=== PATIENT | male | born 1990 | race Caucasian/White ===

== ENCOUNTER 2016-06-20 00:35 | Emergency (ER) | payer MEDICAID, BC ==
[~2016-06-20] VITALS: Ht 180.3 cm; Wt 136.1 kg
[2016-06-20 00:35] VITALS: BP 132/91; PULSE 117; RESP 20; TEMP 97.5; O2SAT 97
--- NOTE | 2016-06-20 00:35 | NUR ---
Patient to ER bed 2 to gown for evaluation. Side rails up. Report given to HODAN WOODRUFF.
--- NOTE | 2016-06-20 00:45 | NUR ---
Pt states that he has had a sore throat and ear ache since he came back from [place] about a few days ago. No other injuries or complaints mentioned/noted. Will continue to monitor. No distress noted.
--- NOTE | 2016-06-20 00:55 | NUR ---
RENARD Tam at bedside examining patient.
[2016-06-20 01:00] VITALS: BP 132/91; PULSE 100; RESP 20; TEMP 97.5; O2SAT 97
--- NOTE | 2016-06-20 01:00 | NUR ---
Patient given written and verbal discharge instructions and verbalizes understanding. ER MD discussed with patient the results and treatment provided. Patient in stable condition. ID arm band removed. Patient educated on pain management and to follow up with PMD. Pain Scale 3/10. Opportunity for questions provided and answered.
== END 2016-06-20 01:00 | disposition home or self-care (01) ==
LOC: SED 00:35
DX: B34.9 Viral infection, unspecified (principal)
CPT/HCPCS: 99281

== ENCOUNTER 2016-09-14 23:04 | Emergency (ER) | payer BC, MEDICAID ==
[~2016-09-14] VITALS: Ht 177.8 cm; Wt 136.1 kg
[2016-09-14 23:18] VITALS: BP_SYST 135
--- NOTE | 2016-09-14 23:24 | NUR ---
Patient to ER bed 8 to gown for evaluation. Side rails up. Report given to Kori WOODRUFF.
--- NOTE | 2016-09-14 23:25 | NUR ---
Patient AAO x4, sitting in bed, c/o dry cough x 1 day, congestion, patient presents with afebrile temp and skin diaphoretic with pink flushed cheeks. Patient states he has been feeling unwell x 2 days. Upper chest pain noted 5/10, denies shortness of breath, denies dizziness, no acute distress noted. Will continue to monitor.
--- NOTE | 2016-09-14 23:45 | NUR ---
RENARD Peralta at bedside examining patient.
[2016-09-15] MEDS ORDERED: KETOROLAC TROMETHAMINE 60 MG/2 ML VIAL IM ONE
[2016-09-15 00:20] VITALS: BP_SYST 130
--- NOTE | 2016-09-15 00:20 | NUR ---
Patient given written and verbal discharge instructions and verbalizes understanding. ER MD discussed with patient the results and treatment provided. Patient in stable condition. ID arm band removed. No Rx given. Patient educated on pain management and to follow up with PMD. Pain Scale 0/10. Opportunity for questions provided and answered.
== END 2016-09-15 00:20 | disposition home or self-care (01) ==
LOC: SED 23:04
DX: B34.9 Viral infection, unspecified (principal); R03.0 Elevated blood-pressure reading, without diagnosis of hypertension; J45.909 Unspecified asthma, uncomplicated; F20.9 Schizophrenia, unspecified
CPT/HCPCS: 93005; 96372; 99283; J1885

== ENCOUNTER 2017-06-03 23:50 | Emergency (ER) | payer MEDICAID ==
[~2017-06-03] VITALS: Ht 177.8 cm; Wt 136.1 kg
[2017-06-03 23:50] VITALS: BP_SYST 156
[2017-06-04] MEDS ORDERED: KETOROLAC TROMETHAMINE 60 MG/2 ML VIAL IM ONE (00:15)
[2017-06-04 00:36] VITALS: BP_SYST 142
== END 2017-06-04 00:36 | disposition home or self-care (01) ==
LOC: SED 23:50
DX: R10.9 Unspecified abdominal pain (principal); M79.1 Myalgia; F20.9 Schizophrenia, unspecified; J45.909 Unspecified asthma, uncomplicated
CPT/HCPCS: 96372; 99283; J1885

== ENCOUNTER 2020-05-29 07:38 | Inpatient (IN) | payer MEDICAID, SELFPAY ==
[~2020-05-29] VITALS: Ht 180.3 cm; Wt 124.7 kg
--- NOTE | 2020-05-29 07:38 | NUR ---
TRAIGED AND PLACED IN TENT
--- NOTE | 2020-05-29 07:40 | NUR ---
PT ARRIVES FROM HOME WITH INCREASING SOB, COUGH, AND CONGESTION. PT HAS HX OF ASTHMA. TESTED POSTIVE FOR COVID ON 05/24. CURRENT O2 SAT IS 89% ON RA. PLACED ON 2L NC. O2 STAT IS 97%.
[2020-05-29 07:53] VITALS: BP_SYST 96
--- NOTE | 2020-05-29 08:00 | NUR ---
ER examining thein the tent patient.
[2020-05-29 08:39] LABS: BASOPHILS % (AUTO) 0.2 % (0.0-2.0); HEMATOCRIT 43.7 % (36-54); HEMOGLOBIN 14.5 g/dL (14.0-18.0); LYMPHOCYTES # (AUTO) 0.9 K/uL (1.0-5.5); LYMPHOCYTES % (AUTO) 11.9 % (20.5-51.5); MEAN CORPUSCULAR HEMOGLOBIN 31 pg (27-31); MEAN CORPUSCULAR HGB CONC 33 % (32-36); MEAN CORPUSCULAR VOLUME 92 fL (79.0-98.0); MONOCYTES # (AUTO) 0.4 K/uL (0.0-1.0); MONOCYTES % (AUTO) 5.5 % (1.7-9.3); NEUTROPHILS # (AUTO) 6.5 K/uL (1.8-7.7); NEUTROPHILS % (AUTO) 82.4 % (40.0-70.0); PLATELET COUNT (AUTO) 172 K/uL (130-430); RED BLOOD CELL COUNT(AUTO) 4.73 MIL/uL (4.2-6.2); RED CELL DISTRIBUTION WIDTH 13.7 % (9.0-15.0); WHITE BLOOD COUNT (AUTO) 7.9 K/uL (4.8-10.8)
[2020-05-29 08:54] LABS: CALCIUM 8.5 mg/dL (8.4-11.0); CREATININE 1.35 mg/dL (0.55-1.30); POTASSIUM 3.6 mmol/L (3.5-5.1)
[2020-05-29 09:00] LABS: ALBUMIN 3.2 g/dL (3.4-4.8); TOTAL BILIRUBIN 0.6 mg/dL (0.0-1.0)
[2020-05-29] MEDS ORDERED: NACL 0.9% 1,000 ML IV ONE (09:45)
[2020-05-29] MEDS ORDERED: cefTRIAXone 1 GM in D5W 50 ML IV ONE (09:45)
[2020-05-29] MEDS ORDERED: cefTRIAXone 1 GM VIAL ONE (10:32)
--- NOTE | 2020-05-29 10:50 | NUR ---
# 20 gauge angiocath placed to RAC. Use of asceptic technique. Opsite placed over site. Blood return noted. Blood for lab drawn from site. Flushed with 10 cc of normal saline. No evidence of infiltration noted. Patient tolerated well.
--- NOTE | 2020-05-29 11:00 | NUR ---
NS 1 L AND ROCEPHIN CURRENTLY INFUSING PER MD ORDER
[2020-05-29] MEDS ORDERED: KETOROLAC TROMETHAMINE 30 MG VIAL IVP ONE (11:45)
--- NOTE | 2020-05-29 12:00 | NUR ---
went to the tent to reassess the pt. I was informed by security that the pt is his car and w/out the O2. Pt wanted leave AMA. Dr. Vicente spoke with the pt and informed the pt about the possible medical consequences.
[2020-05-29] MEDS ORDERED: KCL 20 mEq in D5NS 1000 mL 1,000 ML IV SCH (12:33)
[2020-05-29 13:08] VITALS: BP_SYST 96
--- NOTE | 2020-05-29 14:13 | NUR ---
Dr dorsey at bedside assessing and reassuring patient
[2020-05-29] MEDS ORDERED: ALBUTEROL MDI INHALATION 8 GM INH INH PRN (15:15)
[2020-05-29] MEDS ORDERED: DEXAMETHASONE SOD PHOSPHATE 10 MG/ML VIAL IVP SCH (15:15)
[2020-05-29] MEDS ORDERED: CHOLECALCIFEROL (VITAMIN D3) 5,000 UNIT TABLET PO SCH (15:15)
--- NOTE | 2020-05-29 15:18 | NUR ---
Patient to ER bed 05 to gown for evaluation. Side rails up.
[2020-05-29 17:00] VITALS: BP_SYST 101
--- NOTE | 2020-05-29 17:20 | NUR ---
Patient does not wish to proceed with medical care recommended by Dr Velázquez . Patient given information related to possible complications, up to and including , which could occur as a result of leaving hospital at this time. Patient verbalizes understanding of risks involved leaving against medical advice. Patient has signed AMA form.
--- NOTE | 2020-05-29 17:25 | NUR ---
pt left AMA. Dr. Velázquez informed the pt regarding the possible consequences, including possible .
[2020-05-29] MEDS ORDERED: AZITHROMYCIN 500 MG in NS 250 ML IV SCH (17:45)
[2020-05-29] MEDS ORDERED: ASCORBIC ACID 500 MG TABLET PO SCH (21:00)
[2020-05-29] MEDS ORDERED: ENOXAPARIN SODIUM 40 MG/0.4 ML SYRINGE SUBCUT SCH (21:00)
[2020-05-29] MEDS ORDERED: PIPERACILLIN/TAZO 4.5GM/DEX-IS 100 ML IV SCH (22:00)
--- NOTE | 2020-05-30 00:44 | NUR ---
CALLED ADMITTING SPOKE WITH NAZANIN SHE SAID CAN NOT DISCHARGE PATIENT PATIENT WAS DC THEN RE ADMITTED REASON WHY APPEARS TWICE IN OUR CENSUS
[2020-05-30] MEDS ORDERED: cefTRIAXone 1 GM in D5W 50 ML IV SCH (09:00)
== END 2020-05-29 17:25 | disposition left against medical advice (07) | DRG 137 ==
LOC: SED 07:38 → SMU 10:23 → UNDODEPER 19:15
PROVIDERS: ADMIT Family Medicine; ATTEND Family Medicine
DX: U07.1 COVID-19 (principal); J12.89 Other viral pneumonia; Z53.29 Procedure and treatment not carried out because of patient's decision for other reasons; J45.909 Unspecified asthma, uncomplicated; Z91.09 Other allergy status, other than to drugs and biological substances; R09.02 Hypoxemia
CPT/HCPCS: 36415; 71045; 80053; 83880; 84484; 85025; 86886; 86900; 86901; 87040-TC; 96365; 96375; 99285; J0456; J0696; J1100; J1650; J1885; J2543; J7050; J7060

== ENCOUNTER 2020-05-29 17:59 | Inpatient (IN) | payer MEDICAID, SELFPAY ==
[~2020-05-29] VITALS: Ht 180.3 cm; Wt 126.6 kg
[2020-05-29 18:14] VITALS: BP_SYST 123
--- NOTE | 2020-05-29 18:39 | NUR ---
Placed in room 08 . Placed on monitor technician, blood pressure machine and pulse oximeter. To gown for exam. Side rails up.
--- NOTE | 2020-05-29 18:55 | NUR ---
RECEIVED AND IN ROOM, PLACED ON MONITOR, ST NO ECTOPY. RESP TACHYPNEIC. SKIN WARM AND DRY. COMMUNICATES CLEARLY IN FULL COMPLETE SENTENCES.
--- NOTE | 2020-05-29 19:20 | NUR ---
NO COMPLAINTS, RESP TACY, SKIN HOT. DENIES CP.
[2020-05-29] MEDS: cefTRIAXone 1 GM IVPB PREMIX 50 ML IV SCH (20:30)
[2020-05-29] MEDS: KCL 20 mEq in D5NS 1000 mL 1,000 ML IV SCH (20:31)
--- NOTE | 2020-05-29 20:37 | NUR ---
CALM, ALERT, RESP TACHY, TACHYCARDIC, NORMOTENSIVE. NO DISTRESS
--- NOTE | 2020-05-29 21:32 | NUR ---
Note tiffanie in EDM - 05/29/20 at 2133 by KELLIE Patient will be admitted to care of [facility]. Admitted to M/S] unit. Will go to room 133. Belongings list completed. Complete and up to date summary report printed. SBAR report to be given at bedside with opportunity for questions.
--- NOTE | 2020-05-29 21:33 | NUR ---
Patient will be admitted to care [facility]. Admitted to M/S unit. Will go to room 133. Belongings list completed. Complete and up to date summary report printed. SBAR report to be given at bedside with opportunity for questions.
[2020-05-29 21:45] VITALS: BP_SYST 122
--- NOTE | 2020-05-29 21:45 | NUR ---
ADMIT NOTE Received pt from ER to the floor with a diagnosis of COVID positive and Pneumonia. Admission process initiated. Patient oriented to pain management, safety and call light-teach back done.
--- NOTE | 2020-05-29 22:50 | NUR ---
PAGED DR. VANCE FOR ORDERS: Informed Dr. Vance that patient is having a fever of 101.5 temporal. He gave orders for Tylenol. Dr. Vance states patient left AMA earlier today and returned an hour later for admission. Dr. Vance gave instructions to continue all orders that were given during previous admission prior to patient leaving AMA.
[2020-05-29] MEDS ORDERED: ACETAMINOPHEN 325 MG TABLET PO PRN (23:15)
[2020-05-29] MEDS ORDERED: ALBUTEROL MDI INHALATION 8 GM INH INH PRN (23:15)
--- NOTE | 2020-05-29 23:21 | NUR ---
PAGED: PAGED DR. BORREGO REGARDING ORDERS. DR. CASH IS W[employer] SPORTS MANAGER SPOKE WITH [employer]
--- NOTE | 2020-05-29 23:55 | NUR ---
PER PATIENT, HE ONLY GIVES AUTHORIZATION TO GIVE HIS INFORMATION. PATIENT'S MOM CALLED AND PT REQUESTED THAT WE DO NOT GIVE HER ANY INFORMATION AND ASKED FOR CALL TO BE TRANSFERRED TO HIS ROOM. CALL WAS TRANSFERRED.
[2020-05-30] VITALS (22 sets, daily range): BP systolic 106–140
[2020-05-30] MEDS: ACETAMINOPHEN 325 MG TABLET PO PRN (00:30)
--- NOTE | 2020-05-30 00:30 | NUR ---
RN ROUNDS / VITALS: Patient is laying in bed and flushed and appears short of breath. Upon taking vitals O2 was 84%. I placed patient on 6L O2 via NC and assisted patient to the prone position and his O2 dropped to 75%. I then turned back on his back and O2 back at 84% and very short of breath. I placed patient on simple mask at 10L with no change in saturation, still at 84%. I then placed patient on non rebreather mask at 15L and O2 is at 94%. Will page Dr. Vance to notify of change of status.
--- NOTE | 2020-05-30 01:06 | NUR ---
PAGED: PAGED DR. CASIANO REGARDING CHANGE OF CONDITION NURSE WAS CONNECTED DIRECTLY TO DR. LONDON WITH [facility]
--- NOTE | 2020-05-30 01:10 | NUR ---
CHANGE IN STATUS: Spoke with Dr. Vance and informed him that patient's O2 dropped to 84% on despite raising O2 to 6L and after placing patient on simple mask at 10L O2 was still at 84%. Furthermore, I placed patient on nonrebreather mask at 15L and O2 now at 94-95%. Per Rajiv he had advised ER nurse to transfer all orders from previous admission prior to patient signing out AMA including Dr. Banks's orders but they were not transferred. He asked me re enter all orders for meds not given as a one time dose and give now. Also page Dr. Stafford, place patient on BIPAP, and transfer patient to ICU and if patient continues to desat call a code for ER to intubate.
--- NOTE | 2020-05-30 01:14 | NUR ---
PAGED I PAGED DR. PURDY I SPOKE WITH BON HICKS
[2020-05-30] MEDS ORDERED: ENOXAPARIN SODIUM 40 MG/0.4 ML SYRINGE SUBCUT ONE (01:30)
[2020-05-30] MEDS ORDERED: ASCORBIC ACID 500 MG TABLET PO ONE (01:30)
[2020-05-30] MEDS ORDERED: CHOLECALCIFEROL (VITAMIN D3) 5,000 UNIT TABLET PO ONE (01:30)
--- NOTE | 2020-05-30 01:45 | NUR ---
SPOKE WITH DR. PURDY: Per Dr. Vance, spoke with Dr. Purdy and informed him of request for consult and gave him pt's current status. Dr. Purdy gave further orders and will enter as given.
--- NOTE | 2020-05-30 02:30 | NUR ---
TRANSFERRED CARE: Report given to Ayaz WOODRUFF at 0230. Patient will be in ICU per Dr. Vance's orders.
[2020-05-30] MEDS ORDERED: ALBUTEROL MDI INHALATION 8 GM INH INH PRN (03:00)
--- NOTE | 2020-05-30 05:10 | NUR ---
DR. POST IS AWARE OF THE CONSULT PER ROGER WOODRUFF
--- NOTE | 2020-05-30 07:00 | NUR ---
i assumed the care of the pt.@0130a.pt.presented change in respiratory status.pt.presented de-saturation via the nasal cannulae. paged apprised of the pt's change in respiratory status. had ordered abg's:call w results. i conveyed the abg's results to . ordered o2 via nrb-mask concurrent w high flow;rate:96h=920%fio-2%. transfer to icu.pt. was transferred to icu overflow;rm;125-a. ordered abg's/cxr in am.pt.presents breathing pattern 02-stabilized.pt's telephoned the unit.i provided the pt update.the pt's was apprised of the pt's transfer to icu unit and the application;administration of o2-therapy via high flow modality. i have collected the mrsa sample sent lab;2/t pt's change/transfer to icu unit.
[2020-05-30] MEDS: ALBUTEROL MDI INHALATION 8 GM INH INH SCH ×2 (07:30→14:05)
--- NOTE | 2020-05-30 07:30 | NUR ---
Opening Note Received plan of care via sbar from endorsing RN.
[2020-05-30] MEDS: CHOLECALCIFEROL (VITAMIN D3) 5,000 UNIT TABLET PO SCH (09:32)
[2020-05-30] MEDS: ASCORBIC ACID 500 MG TABLET PO SCH ×2 (09:32→21:31)
[2020-05-30] MEDS: ENOXAPARIN SODIUM 40 MG/0.4 ML SYRINGE SUBCUT SCH ×2 (09:34→21:32)
[2020-05-30] MEDS: KCL 20 mEq in D5NS 1000 mL 1,000 ML IV SCH (09:51)
--- NOTE | 2020-05-30 09:59 | NUR ---
UNABLE TO CONTACT RANJAN NYE CALLED MT @1634 PATIENT'S PLUSE OX IS NOT SHOWING SPOKE TO POPEYE @10:00 PATIENT HAS BEEN OFF THE O2 MONITOR FOR 15 MINUTES
--- NOTE | 2020-05-30 10:15 | NUR ---
Dr. Ortega at bedside. Provided patient update no new orders.
[2020-05-30 10:33] LABS: C-REACTIVE PROTEIN QUANT 16.2 mg/dL (0-0.5)
--- NOTE | 2020-05-30 12:15 | NUR ---
Received return call from Dr. Stafford. Provided patient udpate including ABGs. Received orders to titrate high flow to 100% as required and to supplement with a non rebreather if needed. In addition, MD lópez with patient on IS.
[2020-05-30] MEDS: DEXAMETHASONE SOD PHOSPHATE 10 MG/ML VIAL IVP SCH (16:28)
--- NOTE | 2020-05-30 20:00 | NUR ---
ASSESSMENT Pt awake alert oriented to, self, time and place. Pt with Oxygen in use. Hi Flow in use. O2 sat @ 90%. IV infusing left wrist 18ga. No redness or swelling noted @ site.
--- NOTE | 2020-05-30 21:00 | NUR ---
DR RAJWINDER Stafford here evaluating the patient.
[2020-05-30] MEDS: cefTRIAXone 1 GM IVPB PREMIX 50 ML IV SCH (21:29)
--- NOTE | 2020-05-30 22:00 | NUR ---
CONVALESCENT PLASMA Pt did not want to sign consent for Convalescent Plasma, wants more information. Written information given to Pt.
[2020-05-30 22:54] LABS: BASOPHILS % (AUTO) 0.1 % (0.0-2.0); HEMATOCRIT 39.8 % (36-54); HEMOGLOBIN 13.4 g/dL (14.0-18.0); LYMPHOCYTES # (AUTO) 0.7 K/uL (1.0-5.5); LYMPHOCYTES % (AUTO) 8.9 % (20.5-51.5); MEAN CORPUSCULAR HEMOGLOBIN 31 pg (27-31); MEAN CORPUSCULAR HGB CONC 34 % (32-36); MEAN CORPUSCULAR VOLUME 92 fL (79.0-98.0); MONOCYTES # (AUTO) 0.4 K/uL (0.0-1.0); MONOCYTES % (AUTO) 4.6 % (1.7-9.3); NEUTROPHILS # (AUTO) 6.7 K/uL (1.8-7.7); NEUTROPHILS % (AUTO) 86.4 % (40.0-70.0); PLATELET COUNT (AUTO) 241 K/uL (130-430); RED BLOOD CELL COUNT(AUTO) 4.32 MIL/uL (4.2-6.2); WHITE BLOOD COUNT (AUTO) 7.8 K/uL (4.8-10.8)
--- NOTE | 2020-05-30 23:00 | NUR ---
REMDESIVIR Medication not available. Unable to reach vocational instructor Pharm[facility].
[2020-05-30 23:11] LABS: CALCIUM 8.4 mg/dL (8.4-11.0); CREATININE 0.95 mg/dL (0.55-1.30)
[2020-05-30 23:18] LABS: ALBUMIN 2.5 g/dL (3.4-4.8); TOTAL BILIRUBIN 0.5 mg/dL (0.0-1.0)
[2020-05-31] VITALS (16 sets, daily range): BP systolic 104–134
[2020-05-31] MEDS: KCL 20 mEq in D5NS 1000 mL 1,000 ML IV SCH ×2 (00:11→11:03)
[2020-05-31] MEDS: ALBUTEROL MDI INHALATION 8 GM INH INH SCH ×4 (05:39→07:40)
[2020-05-31 07:14] LABS: BASOPHILS % (AUTO) 0.1 % (0.0-2.0); HEMATOCRIT 39.5 % (36-54); HEMOGLOBIN 13.3 g/dL (14.0-18.0); LYMPHOCYTES # (AUTO) 0.9 K/uL (1.0-5.5); LYMPHOCYTES % (AUTO) 13.9 % (20.5-51.5); MEAN CORPUSCULAR HEMOGLOBIN 31 pg (27-31); MEAN CORPUSCULAR HGB CONC 34 % (32-36); MEAN CORPUSCULAR VOLUME 93 fL (79.0-98.0); MONOCYTES # (AUTO) 0.6 K/uL (0.0-1.0); MONOCYTES % (AUTO) 8.8 % (1.7-9.3); NEUTROPHILS # (AUTO) 5.2 K/uL (1.8-7.7); NEUTROPHILS % (AUTO) 77.2 % (40.0-70.0); PLATELET COUNT (AUTO) 253 K/uL (130-430); RED BLOOD CELL COUNT(AUTO) 4.25 MIL/uL (4.2-6.2); RED CELL DISTRIBUTION WIDTH 14.1 % (9.0-15.0); WHITE BLOOD COUNT (AUTO) 6.8 K/uL (4.8-10.8)
[2020-05-31 07:59] LABS: ALBUMIN 2.4 g/dL (3.4-4.8); BILIRUBIN,DIRECT 0.3 mg/dL (0.0-0.3); CALCIUM 8.3 mg/dL (8.4-11.0); CREATININE 0.78 mg/dL (0.55-1.30); POTASSIUM 4.1 mmol/L (3.5-5.1); TOTAL BILIRUBIN 0.6 mg/dL (0.0-1.0)
--- NOTE | 2020-05-31 08:00 | NUR ---
patient on 30L Hi Flow (c 80% O2), A/Ox4. SR on monitor. IV on the left wrist, #18, infusing IV fluids. Eating breakfast at this time. Call light in place, bed locked at the lowest position. With BSC.
[2020-05-31] MEDS: ASCORBIC ACID 500 MG TABLET PO SCH ×2 (08:04→20:32)
[2020-05-31] MEDS: CHOLECALCIFEROL (VITAMIN D3) 5,000 UNIT TABLET PO SCH (08:05)
[2020-05-31] MEDS: ENOXAPARIN SODIUM 40 MG/0.4 ML SYRINGE SUBCUT SCH ×2 (08:05→20:33)
--- NOTE | 2020-05-31 09:53 | NUR ---
Nutrition Update Hi Scale 18 noted. Pt admitted for COVID positive/PNA Diet: Regular BMI: 39.2 kg/m2 RD to follow per nutrition care standards.
--- NOTE | 2020-05-31 11:00 | NUR ---
Patient is assisted into a chair. Patient tolerated without distress.
--- NOTE | 2020-05-31 12:30 | NUR ---
Patient eating breakfast at this time. No signs of distress noted.
--- NOTE | 2020-05-31 14:56 | NUR ---
Patient has returned to be with assistance. V/S remained stable.
[2020-05-31] MEDS: DEXAMETHASONE SOD PHOSPHATE 10 MG/ML VIAL IVP SCH (15:13)
[2020-05-31 16:40] LABS: C-REACTIVE PROTEIN QUANT 16.8 mg/dL (0-0.5)
--- NOTE | 2020-05-31 17:00 | NUR ---
Patient is instructed to use incentive spirometer 10x an hour to promote lung expansion and airway clearance.
[2020-05-31 17:06] LABS: C-REACTIVE PROTEIN QUANT 16.8 mg/dL (0-0.5)
--- NOTE | 2020-05-31 18:30 | NUR ---
Patient finished dinner. No signs of distress noted.
[2020-05-31] MEDS: cefTRIAXone 1 GM IVPB PREMIX 50 ML IV SCH (20:32)
--- NOTE | 2020-05-31 22:00 | NUR ---
DR RAJWINDER Stafford here evaluating pt.
[2020-06-01] VITALS (22 sets, daily range): BP systolic 103–142
[2020-06-01] MEDS: KCL 20 mEq in D5NS 1000 mL 1,000 ML IV SCH ×2 (00:50→05:54)
[2020-06-01 07:03] LABS: BASOPHILS # (AUTO) 0.1 K/uL (0.0-0.2); BASOPHILS % (AUTO) 1.2 % (0.0-2.0); EOSINOPHILS # (AUTO) 0.1 K/uL (0.0-0.4); EOSINOPHILS % (AUTO) 0.9 % (0.0-4.0); HEMATOCRIT 38.7 % (36-54); HEMOGLOBIN 13.2 g/dL (14.0-18.0); LYMPHOCYTES # (AUTO) 1.3 K/uL (1.0-5.5); LYMPHOCYTES % (AUTO) 11.9 % (20.5-51.5); MEAN CORPUSCULAR HEMOGLOBIN 32 pg (27-31); MEAN CORPUSCULAR HGB CONC 34 % (32-36); MEAN CORPUSCULAR VOLUME 93 fL (79.0-98.0); MONOCYTES # (AUTO) 0.8 K/uL (0.0-1.0); MONOCYTES % (AUTO) 7.6 % (1.7-9.3); NEUTROPHILS # (AUTO) 8.6 K/uL (1.8-7.7); NEUTROPHILS % (AUTO) 78.4 % (40.0-70.0); PLATELET COUNT (AUTO) 347 K/uL (130-430); RED BLOOD CELL COUNT(AUTO) 4.17 MIL/uL (4.2-6.2); RED CELL DISTRIBUTION WIDTH 13.9 % (9.0-15.0); WHITE BLOOD COUNT (AUTO) 10.9 K/uL (4.8-10.8)
[2020-06-01 07:10] LABS: CALCIUM 8.5 mg/dL (8.4-11.0); CREATININE 0.96 mg/dL (0.55-1.30); POTASSIUM 4.5 mmol/L (3.5-5.1)
[2020-06-01] MEDS: ASCORBIC ACID 500 MG TABLET PO SCH ×2 (08:09→20:10)
[2020-06-01] MEDS: CHOLECALCIFEROL (VITAMIN D3) 5,000 UNIT TABLET PO SCH (08:57)
[2020-06-01] MEDS: ENOXAPARIN SODIUM 40 MG/0.4 ML SYRINGE SUBCUT SCH ×2 (08:58→20:11)
[2020-06-01] MEDS: BUDESONIDE 0.5 MG/2 ML AMPUL.NEB INH SCH ×2 (09:00→20:03)
[2020-06-01] MEDS: ALBUTEROL MDI INHALATION 8 GM INH INH SCH ×3 (09:45→20:02)
--- NOTE | 2020-06-01 10:30 | NUR ---
Notes- on his phone, pt stated that there is water coming out on his oxygen, called respiratory therapist
--- NOTE | 2020-06-01 10:33 | NUR ---
RANJAN PUGH WAS CALLED ON HER CELL RE: O2 DROPPING AT 86%. LEFT A VOICE MESSAGE.
[2020-06-01 10:39] LABS: ALBUMIN 2.4 g/dL (3.4-4.8); BILIRUBIN,DIRECT 0.3 mg/dL (0.0-0.3); C-REACTIVE PROTEIN QUANT 7.3 mg/dL (0-0.5); TOTAL BILIRUBIN 0.5 mg/dL (0.0-1.0)
--- NOTE | 2020-06-01 11:29 | NUR ---
Notes- resting at this time. Enc. patient to use incentive spirometer and to turn to his side and also to prone position. Patient verbalize understanding.
[2020-06-01] MEDS: DEXAMETHASONE SOD PHOSPHATE 10 MG/ML VIAL IVP SCH (15:16)
--- NOTE | 2020-06-01 16:00 | NUR ---
Notes- On his cellphone, denies any pain, afebrile, on high flow 80% tolerating so far.
--- NOTE | 2020-06-01 18:58 | NUR ---
Notes provided dinner, denies any pain or discomfort. IVF infusing well, tolerating current oxygen-on high flow at 80%. uses incentive spirometer.No distress noted.
--- NOTE | 2020-06-01 19:25 | NUR ---
Opening Note Received report from AM nurse using SBAR approach.
[2020-06-01] MEDS: cefTRIAXone 1 GM IVPB PREMIX 50 ML IV SCH (20:10)
--- NOTE | 2020-06-01 22:00 | NUR ---
MD Dr. Ortega came to see patient. No new orders received.
--- NOTE | 2020-06-01 22:30 | NUR ---
MD Dr. Stafford in to see patient. No new orders received.
[2020-06-02] VITALS (21 sets, daily range): BP systolic 107–133
--- NOTE | 2020-06-02 | NUR ---
DOZES ON AND OFF. DESATURATES EASILY, ESPECIALLY WHEN HE TAKES OFF O2. SINUS PHILIP AT TIMES TO 58.
[2020-06-02] MEDS: ALBUTEROL MDI INHALATION 8 GM INH INH SCH ×4 (02:07→21:07)
[2020-06-02] MEDS: KCL 20 mEq in D5NS 1000 mL 1,000 ML IV SCH ×2 (03:31→11:22)
[2020-06-02 06:00] LABS: BASOPHILS % (AUTO) 0.2 % (0.0-2.0); HEMATOCRIT 39.7 % (36-54); HEMOGLOBIN 13.1 g/dL (14.0-18.0); LYMPHOCYTES # (AUTO) 0.9 K/uL (1.0-5.5); LYMPHOCYTES % (AUTO) 8.8 % (20.5-51.5); MEAN CORPUSCULAR HEMOGLOBIN 31 pg (27-31); MEAN CORPUSCULAR HGB CONC 33 % (32-36); MEAN CORPUSCULAR VOLUME 93 fL (79.0-98.0); MONOCYTES # (AUTO) 0.8 K/uL (0.0-1.0); NEUTROPHILS # (AUTO) 8.6 K/uL (1.8-7.7); PLATELET COUNT (AUTO) 344 K/uL (130-430); RED BLOOD CELL COUNT(AUTO) 4.26 MIL/uL (4.2-6.2); RED CELL DISTRIBUTION WIDTH 13.7 % (9.0-15.0); WHITE BLOOD COUNT (AUTO) 10.4 K/uL (4.8-10.8)
[2020-06-02 06:37] LABS: CALCIUM 8.5 mg/dL (8.4-11.0); CREATININE 0.77 mg/dL (0.55-1.30); POTASSIUM 3.9 mmol/L (3.5-5.1)
[2020-06-02] MEDS: ASCORBIC ACID 500 MG TABLET PO SCH ×2 (08:17→22:54)
[2020-06-02] MEDS: ENOXAPARIN SODIUM 40 MG/0.4 ML SYRINGE SUBCUT SCH ×2 (08:18→22:54)
[2020-06-02] MEDS: CHOLECALCIFEROL (VITAMIN D3) 5,000 UNIT TABLET PO SCH (10:12)
--- NOTE | 2020-06-02 10:55 | NUR ---
RT NOTES CRITICAL ABG REPORTED TO RANJAN MILLER. INCREASED FIO2 TO 90% ON HFNC (THIS HFNC DOES NOT GO UP TO 100%) WITH 100% NONREBREATHER MASK ON TOP. RANJAN MILLER MADE AWARE. WILL CONTINUE MONITORING.
--- NOTE | 2020-06-02 11:05 | NUR ---
PER Cesar THOAMS, O2 SAT IS LOW. ON ABG, DR PURDY PAGE TO RELAY ABG RESULTS.
--- NOTE | 2020-06-02 11:30 | NUR ---
PT ASSISTED SITTING ON THE EOB FOR REPOSITIONING.
--- NOTE | 2020-06-02 12:50 | NUR ---
PT'S VALERIE UPDATED WITH PT'S CONDITION.
[2020-06-02] MEDS: DEXAMETHASONE SOD PHOSPHATE 10 MG/ML VIAL IVP SCH (16:04)
--- NOTE | 2020-06-02 17:02 | NUR ---
PT ASSISTED WITH PRONING. PT NOW ON PRONE POSITION IN BED. WILL CONT TO MONITOR.
--- NOTE | 2020-06-02 18:05 | NUR ---
DR BORREGO GAVE OKAY TO GIVE CONVAL. PLASMA TYPE TO PT.
--- NOTE | 2020-06-02 19:39 | NUR ---
CLOSING NOTES PT CONTINUED TO BE ON HIGH FLOW AND NRB MASK , PT STILL DESATS TO 88% WITH OUT THE NRB. PT ENDORSED TO NIGHT RANJAN LUKE. ENDORSED TO GET CONSENT AND TRANSFUSE CONVALESCENT PLASMA.
--- NOTE | 2020-06-02 20:00 | NUR ---
AAOX4 . ON O2 WITH HIGH FLOW AT 30L/MIN(80%), + NON-REBREATHER MASK. SOB UPON EXERTION.
--- NOTE | 2020-06-02 21:00 | NUR ---
DR PURDY HERE, UPDATED ON STATUS. NO NEW ORDERS GIVEN.
--- NOTE | 2020-06-02 21:40 | NUR ---
TALKED TO ON PHONE REGARDING CONVALESCENT PLASMA. QUESTIONS ANSWERED. PT SIGNED CONSENT FORM FOR TRANSFUSION.
--- NOTE | 2020-06-02 21:50 | NUR ---
HUNGRY, ASKED FOR SNACKS. ATE HALF A TURKEY SANDWICH, APPLE SAUCE, APPLE JUICE AND CUSTARD.
--- NOTE | 2020-06-02 22:00 | NUR ---
VOIDED 450CC CLEAR FILIBERTO URINE VIA URINAL.
[2020-06-02] MEDS: cefTRIAXone 1 GM IVPB PREMIX 50 ML IV SCH (22:53)
--- NOTE | 2020-06-02 23:00 | NUR ---
VOIDED 750CC CLEAR FILIBERTO URINE VIA URINAL.
[2020-06-03] VITALS (20 sets, daily range): BP systolic 107–146
--- NOTE | 2020-06-03 01:00 | NUR ---
VOIDED 900CC CLEAR FILIBERTO URINE VIA URINAL.
--- NOTE | 2020-06-03 02:40 | NUR ---
1 UNIT CONVALESCENT PLASMA D# [id number]
[2020-06-03] MEDS: KCL 20 mEq in D5NS 1000 mL 1,000 ML IV SCH ×2 (03:53→23:50)
[2020-06-03] MEDS: ALBUTEROL MDI INHALATION 8 GM INH INH SCH ×2 (04:28→19:50)
--- NOTE | 2020-06-03 05:00 | NUR ---
DOZES ON AND OFF. OCCASIONALLY TAKES OFF O2. DESATURATES. INSTRUCTED TO KEEP O2 ON. CONVALESCENT PLASMA ALL INFUSED. NO ADVERSE EFFECTS NOTED. SINUS PHILIP AT TIMES.
--- NOTE | 2020-06-03 06:51 | NUR ---
NOTIFIED JASON MONTANEZ MT IN ICU PATIENTS LEADS ARE OFF.
--- NOTE | 2020-06-03 07:00 | NUR ---
SLEPT FOR LONG PERIODS OF TIME. NO COMPLAINTS OFFERED AT THIS TIME. REMAINS IN GUARDED CONDITION. LEFT PIV INADVERTENTLY DISLODGED, RELAYED TO DAY SHIFT RANJAN SAUCEDO. VOIDED CLEAR FILIBERTO URINE IN URINAL.
[2020-06-03 07:09] LABS: BASOPHILS % (AUTO) 0.1 % (0.0-2.0); EOSINOPHILS % (AUTO) 0.1 % (0.0-4.0); HEMATOCRIT 39.2 % (36-54); HEMOGLOBIN 13.1 g/dL (14.0-18.0); LYMPHOCYTES # (AUTO) 1.1 K/uL (1.0-5.5); LYMPHOCYTES % (AUTO) 11.8 % (20.5-51.5); MEAN CORPUSCULAR HEMOGLOBIN 31 pg (27-31); MEAN CORPUSCULAR HGB CONC 33 % (32-36); MEAN CORPUSCULAR VOLUME 92 fL (79.0-98.0); MONOCYTES # (AUTO) 0.8 K/uL (0.0-1.0); NEUTROPHILS # (AUTO) 7.2 K/uL (1.8-7.7); PLATELET COUNT (AUTO) 375 K/uL (130-430); RED BLOOD CELL COUNT(AUTO) 4.24 MIL/uL (4.2-6.2); RED CELL DISTRIBUTION WIDTH 13.4 % (9.0-15.0); WHITE BLOOD COUNT (AUTO) 9.1 K/uL (4.8-10.8)
--- NOTE | 2020-06-03 07:30 | NUR ---
Opening note: Report received from night RN. Assuming care now.
--- NOTE | 2020-06-03 07:34 | NUR ---
2ND TIME TO INFORM MT IN ICU INFORMED JASON MONTANEZ MT TO NOTIFY LEWIS ARCHER THAT THE PATIENTS LEADS ARE OFF.
[2020-06-03 07:44] LABS: ALBUMIN 2.5 g/dL (3.4-4.8); BILIRUBIN,DIRECT 0.5 mg/dL (0.0-0.3); CALCIUM 8.5 mg/dL (8.4-11.0); CREATININE 0.8 mg/dL (0.55-1.30); PHOSPHORUS 4.2 mg/dL (2.7-4.5); POTASSIUM 3.7 mmol/L (3.5-5.1)
[2020-06-03] MEDS: CHOLECALCIFEROL (VITAMIN D3) 5,000 UNIT TABLET PO SCH (09:00)
[2020-06-03] MEDS: ASCORBIC ACID 500 MG TABLET PO SCH ×2 (09:03→20:47)
[2020-06-03] MEDS: ENOXAPARIN SODIUM 40 MG/0.4 ML SYRINGE SUBCUT SCH ×2 (09:04→20:47)
--- NOTE | 2020-06-03 11:00 | NUR ---
Midline PIV placed by PICC nurse without incident.
[2020-06-03 13:26] LABS: C-REACTIVE PROTEIN QUANT 6.4 mg/dL (0-0.5)
[2020-06-03] MEDS: PIPERACILLIN/TAZO 4.5GM/DEX-IS 100 ML IV SCH ×2 (14:11→21:50)
--- NOTE | 2020-06-03 14:54 | NUR ---
Continues to be incompliant with NRB mask. Does not wear, however, he has been switching to lying on sides throughout day. Sats in mid 80s to low 90s.
[2020-06-03] MEDS: DEXAMETHASONE SOD PHOSPHATE 10 MG/ML VIAL IVP SCH (16:15)
--- NOTE | 2020-06-03 20:00 | NUR ---
AAOX4. IN NO APPARENT DISTRESS. ON O2 HIGH FLOW AT 30L/MIN + NRBM. DESATURATES WHEN TAKES OFF MASK. INSTRUCTED TO KEEP O2 ON. USING INCENTIVE SPIROMETER. VOIDED 675CC CLEAR FILIBERTO URINE VIA URINAL.
[2020-06-03] MEDS: BUDESONIDE 0.5 MG/2 ML AMPUL.NEB INH SCH (21:00)
[2020-06-04] VITALS (21 sets, daily range): BP systolic 92–143
--- NOTE | 2020-06-04 | NUR ---
DOZES ON AND OFF. HR GOES DOWN TO THE 30'S MOMENTARILY WHEN ASLEEP BUT GENERALLY IN THE HIGH 50'S AND LOW 60'S. VAL MIDLINE DRSG D/I. DR PURDY HERE, UPDATED ON STATUS. NO NEW ORDERS GIVEN. VOIDED 900 CC CLEAR FILIBERTO URINE VIA URINAL.
[2020-06-04] MEDS: ALBUTEROL MDI INHALATION 8 GM INH INH SCH ×4 (01:30→20:09)
--- NOTE | 2020-06-04 04:00 | NUR ---
SLEPT FOR LONG PERIODS OF TIME. HR DIPS IN THE 40'S MOMENTARILY, THEN GOES UP TO THE 70'S. DESATURATES AT TIMES. ABLE TO REPOSITION SELF WELL.
--- NOTE | 2020-06-04 06:00 | NUR ---
SLEPT INTERMITTENTLY. VOIDED 800CC CLEAR YELLOW URINE TO GRAVITY. NO COMPLAINTS OFFERED AT THIS TIME. REMAINS IN GUARDED CONDITION.
[2020-06-04] MEDS: PIPERACILLIN/TAZO 4.5GM/DEX-IS 100 ML IV SCH ×3 (06:01→21:04)
[2020-06-04 06:51] LABS: ALBUMIN 2.5 g/dL (3.4-4.8); BILIRUBIN,DIRECT 0.4 mg/dL (0.0-0.3); CALCIUM 8.8 mg/dL (8.4-11.0); CREATININE 0.72 mg/dL (0.55-1.30); TOTAL BILIRUBIN 0.7 mg/dL (0.0-1.0)
--- NOTE | 2020-06-04 07:30 | NUR ---
oPENING NOTE: Report received from night RN. Assuming care now.
[2020-06-04 07:56] LABS: C-REACTIVE PROTEIN QUANT 4.7 mg/dL (0-0.5)
[2020-06-04] MEDS: ASCORBIC ACID 500 MG TABLET PO SCH ×2 (09:00→21:04)
[2020-06-04] MEDS: CHOLECALCIFEROL (VITAMIN D3) 5,000 UNIT TABLET PO SCH (09:00)
[2020-06-04] MEDS: ENOXAPARIN SODIUM 40 MG/0.4 ML SYRINGE SUBCUT SCH ×2 (09:00→21:05)
--- NOTE | 2020-06-04 13:35 | NUR ---
Spoke w/ patient's mxpd-Pvxlmji-kyloh update on patient's condition. DC plan to home w/ when medically stable.
[2020-06-04] MEDS: DEXAMETHASONE SOD PHOSPHATE 10 MG/ML VIAL IVP SCH (16:12)
--- NOTE | 2020-06-04 18:28 | NUR ---
Patient incompliant with facemask throughout shift. Educated on importance of adherence.
--- NOTE | 2020-06-04 20:00 | NUR ---
AAOX4. IN NO APPARENT DISTRESS. VSS. DENIES PAIN. VOIDED 350CC CLEAR FILIBERTO URINE VIA URINAL.
--- NOTE | 2020-06-04 22:00 | NUR ---
DOZES ON AND OFF. TURNS SELF WELL. NO DISTRESS NOTED.
--- NOTE | 2020-06-04 22:20 | NUR ---
DR PURDY HERE, UPDATED ON STATUS. NO NEW ORDERS GIVEN.
--- NOTE | 2020-06-04 22:47 | NUR ---
CALLED ICU TO LET THEM KNOW THAT THE PATIENT WENT TO [place]OLE
--- NOTE | 2020-06-04 22:48 | NUR ---
ONE OF THE EKG LEADS WAS DETACHED. REATTACHED.
--- NOTE | 2020-06-04 23:00 | NUR ---
VOIDED 400CC CLEAR FILIBERTO URINE VIA URINAL.
--- NOTE | 2020-06-04 23:31 | NUR ---
CALLED ICU AND TOLD THE NURSE THAT THE PATIENT IS OFF THE O2.
--- NOTE | 2020-06-04 23:35 | NUR ---
CHECKED ON PT. POX WAS PROPERLY IN PLACE AT FINGER. PART OF TELEMETRY APPLIANCE CHANGED BY RN.
--- NOTE | 2020-06-04 23:52 | NUR ---
CALLED ICU TO TELL THE NURSE THE PATIENT WAS OFF THE O2
--- NOTE | 2020-06-04 23:54 | NUR ---
APPLIANCE WAS RESET BY REMOVING THEN PLACING BACK BATTERIES. NOW TELEMETRY UNIT IS WORKING PROPERLY.
[2020-06-05] VITALS (24 sets, daily range): BP systolic 93–112
--- NOTE | 2020-06-05 01:00 | NUR ---
PT TALKING TO ON PHONE. CALLED RN ON PHONE AT NURSING STATION , UPDATED ON STATUS. THANKFUL.
--- NOTE | 2020-06-05 02:00 | NUR ---
SLEPT INTERMITTENTLY. VOIDED 450CC CLEAR FILIBERTO URINE VIA URINAL.
--- NOTE | 2020-06-05 04:06 | NUR ---
CALLED ICU TO LET THE NURSE KNOW THAT THE PATIENT HAS A LOW HEART RATE.
--- NOTE | 2020-06-05 04:10 | NUR ---
CALLED AND LET THE NURSE KNOW THAT THE O2 ISN'T ON.
--- NOTE | 2020-06-05 04:15 | NUR ---
CHANGED THE WHOLE TELEMETRY UNIT. POX 90%, HR 59. PT IN NO DISTRESS. VOIDED 350CC CLEAR FILIBERTO URINE TO GRAVITY. Addendum: 06/05/20 at 0447 by Silas Manrique RN CORRECTION: VOIDED 350CC CLEAR FILIBERTO URINE VIA URINAL.
--- NOTE | 2020-06-05 05:23 | NUR ---
CALLED TO LET THE NURSE KNOW THAT THE O2 WAS OFF.
--- NOTE | 2020-06-05 05:30 | NUR ---
CHECKED POX PLACEMENT IN FINGERS, POX IN PLACE. PT SLEEPING, NO DISTRESS NOTED.
[2020-06-05] MEDS: PIPERACILLIN/TAZO 4.5GM/DEX-IS 100 ML IV SCH ×3 (05:34→22:59)
--- NOTE | 2020-06-05 05:56 | NUR ---
CALLED TO LET THE NURSE KNOW THAT THE O2 WAS OFF.
--- NOTE | 2020-06-05 06:00 | NUR ---
SLEPT FOR LONG PERIODS OF TIME. REMAINS IN GUARDED CONDITION.
[2020-06-05 06:38] LABS: BASOPHILS % (AUTO) 0.1 % (0.0-2.0); EOSINOPHILS % (AUTO) 0.1 % (0.0-4.0); HEMATOCRIT 40.8 % (36-54); HEMOGLOBIN 13.6 g/dL (14.0-18.0); LYMPHOCYTES # (AUTO) 1.1 K/uL (1.0-5.5); LYMPHOCYTES % (AUTO) 8.7 % (20.5-51.5); MEAN CORPUSCULAR HEMOGLOBIN 31 pg (27-31); MEAN CORPUSCULAR HGB CONC 33 % (32-36); MEAN CORPUSCULAR VOLUME 93 fL (79.0-98.0); MONOCYTES # (AUTO) 0.7 K/uL (0.0-1.0); MONOCYTES % (AUTO) 6.1 % (1.7-9.3); NEUTROPHILS # (AUTO) 10.4 K/uL (1.8-7.7); PLATELET COUNT (AUTO) 479 K/uL (130-430); RED BLOOD CELL COUNT(AUTO) 4.41 MIL/uL (4.2-6.2); RED CELL DISTRIBUTION WIDTH 13.6 % (9.0-15.0); WHITE BLOOD COUNT (AUTO) 12.2 K/uL (4.8-10.8)
[2020-06-05 06:46] LABS: ALBUMIN 2.6 g/dL (3.4-4.8); BILIRUBIN,DIRECT 0.3 mg/dL (0.0-0.3); CALCIUM 8.9 mg/dL (8.4-11.0); CREATININE 0.83 mg/dL (0.55-1.30); POTASSIUM 3.9 mmol/L (3.5-5.1); TOTAL BILIRUBIN 0.6 mg/dL (0.0-1.0)
--- NOTE | 2020-06-05 07:30 | NUR ---
Opening Note Received plan of care via sbar from endorsing RN.
[2020-06-05] MEDS: ASCORBIC ACID 500 MG TABLET PO SCH ×2 (08:19→20:28)
[2020-06-05] MEDS: CHOLECALCIFEROL (VITAMIN D3) 5,000 UNIT TABLET PO SCH (08:19)
[2020-06-05] MEDS: ENOXAPARIN SODIUM 40 MG/0.4 ML SYRINGE SUBCUT SCH ×2 (08:20→20:29)
[2020-06-05] MEDS: KCL 20 mEq in D5NS 1000 mL 1,000 ML IV SCH ×2 (08:21→22:00)
--- NOTE | 2020-06-05 08:40 | NUR ---
Spoke to Dr. Peña and provided patient update. No new orders.
--- NOTE | 2020-06-05 11:00 | NUR ---
Dr. Vance at bedside. Provided patient update. Received order for Mucinex 600 mg BID PO.
[2020-06-05] MEDS: DEXAMETHASONE SOD PHOSPHATE 10 MG/ML VIAL IVP SCH (15:15)
--- NOTE | 2020-06-05 19:30 | NUR ---
Opening note Received report and assumed care. Patient AAO x4, resting in bed in supine position. No signs of respiratory distress noted as patient continues on high flow canula and tolerating well with O2 sats of 93%. VAL picc in place and patent. will continue to monitor patient as per unit protocol.
[2020-06-05] MEDS: ALBUTEROL MDI INHALATION 8 GM INH INH SCH (20:09)
[2020-06-05] MEDS: guaiFENesin ER 600 MG TAB PO SCH (20:28)
--- NOTE | 2020-06-05 20:30 | NUR ---
Assessment completed. Patient able to reposition self and encouraged to prone during the night. continue to monitor.
--- NOTE | 2020-06-05 21:30 | NUR ---
Dr Stafford at bedside for assessment. No orders received.
[2020-06-06] VITALS (24 sets, daily range): BP systolic 98–141
--- NOTE | 2020-06-06 00:30 | NUR ---
Assessment completed. Patient resting comfortably on his side. No signs of distress noted or reported.
[2020-06-06] MEDS: PIPERACILLIN/TAZO 4.5GM/DEX-IS 100 ML IV SCH ×3 (06:00→23:02)
--- NOTE | 2020-06-06 07:30 | NUR ---
Report received from night nurse. Assuming care now.
[2020-06-06 08:05] LABS: C-REACTIVE PROTEIN QUANT 4.3 mg/dL (0-0.5)
--- NOTE | 2020-06-06 08:47 | NUR ---
ACCESS CONSULTANT LEWIS WAS INFORMED THAT PT HAS NO MINTORING FOR O2 SAT.
[2020-06-06] MEDS: BUDESONIDE 0.5 MG/2 ML AMPUL.NEB INH SCH (09:00)
[2020-06-06] MEDS: ENOXAPARIN SODIUM 40 MG/0.4 ML SYRINGE SUBCUT SCH ×2 (09:17→21:00)
[2020-06-06] MEDS: guaiFENesin ER 600 MG TAB PO SCH ×2 (09:17→21:00)
[2020-06-06] MEDS: ASCORBIC ACID 500 MG TABLET PO SCH ×2 (09:17→21:00)
[2020-06-06 09:39] LABS: ALBUMIN 2.7 g/dL (3.4-4.8); BILIRUBIN,DIRECT 0.3 mg/dL (0.0-0.3); TOTAL BILIRUBIN 0.8 mg/dL (0.0-1.0)
--- NOTE | 2020-06-06 09:47 | NUR ---
A F/U CALL WAS GIVEN TO RANJAN SAUCEDO, STILL NO O2 SAT SHOWING.
[2020-06-06 09:49] LABS: C-REACTIVE PROTEIN QUANT 1.6 mg/dL (0-0.5)
[2020-06-06] MEDS: ALBUTEROL MDI INHALATION 8 GM INH INH SCH ×4 (10:05→20:02)
[2020-06-06] MEDS: CHOLECALCIFEROL (VITAMIN D3) 5,000 UNIT TABLET PO SCH (10:16)
[2020-06-06] MEDS: KCL 20 mEq in D5NS 1000 mL 1,000 ML IV SCH (12:34)
--- NOTE | 2020-06-06 13:17 | NUR ---
Dietitian Recommendations * Recommend continuing regular diet * Double portions of proteins/vegetables LP, RD Please refer to Nutrition Assessment for details. Addendum: 06/06/20 at [address] Amended: Links added.
[2020-06-06] MEDS: DEXAMETHASONE SOD PHOSPHATE 10 MG/ML VIAL IVP SCH (15:15)
--- NOTE | 2020-06-06 15:27 | NUR ---
RANJAN SAUCEDO WAS INFORMED PT IS OFF MONITOR; LEADS OFF.
--- NOTE | 2020-06-06 15:56 | NUR ---
RANJAN SAUCEDO WAS INFORMED THAT O2 SAT IS NOT SHOWING ON THE SCREEN.
[2020-06-06] MEDS ORDERED: *LOVENOX 1MG/KG Q12H/PHARMACY XX ONE (16:45)
[2020-06-07] VITALS (17 sets, daily range): BP systolic 102–139
[2020-06-07] MEDS: PIPERACILLIN/TAZO 4.5GM/DEX-IS 100 ML IV SCH ×3 (06:33→22:21)
--- NOTE | 2020-06-07 08:00 | NUR ---
AM ASSESSMENT DONE. VITAL SIGN STABLE, AFEBRILE. ON HIGH FLOW 85% FIO2, 30 LITERS OXYGEN. SATURATION BETWEEN 88-91%. EDUCATION PROVIDED. UPDATED ABOUT THE POC. VERBALIZED UNDERSTANDING. ENCOURAGE TO CALL WHEN ASSISTANCE NEEDED. CALL LIGHT WITHIN REACH.
[2020-06-07] MEDS: guaiFENesin ER 600 MG TAB PO SCH ×2 (08:26→20:51)
[2020-06-07] MEDS: ASCORBIC ACID 500 MG TABLET PO SCH ×2 (08:27→20:51)
[2020-06-07] MEDS: CHOLECALCIFEROL (VITAMIN D3) 5,000 UNIT TABLET PO SCH (08:27)
[2020-06-07] MEDS: ENOXAPARIN SODIUM 40 MG/0.4 ML SYRINGE SUBCUT SCH ×2 (08:28→20:52)
[2020-06-07] MEDS: BUDESONIDE 0.5 MG/2 ML AMPUL.NEB INH SCH ×2 (09:00→21:00)
[2020-06-07 09:15] LABS: ALBUMIN 2.8 g/dL (3.4-4.8); CALCIUM 9.1 mg/dL (8.4-11.0); CREATININE 0.77 mg/dL (0.55-1.30); POTASSIUM 4.2 mmol/L (3.5-5.1); TOTAL BILIRUBIN 0.7 mg/dL (0.0-1.0)
[2020-06-07] MEDS: ALBUTEROL MDI INHALATION 8 GM INH INH SCH ×3 (10:35→19:00)
[2020-06-07 12:24] LABS: C-REACTIVE PROTEIN QUANT 0.9 mg/dL (0-0.5)
[2020-06-07] MEDS: KCL 20 mEq in D5NS 1000 mL 1,000 ML IV SCH (13:54)
[2020-06-07 14:00] LABS: BASOPHILS # (AUTO) 0.2 K/uL (0.0-0.2); BASOPHILS % (AUTO) 1.2 % (0.0-2.0); EOSINOPHILS % (AUTO) 0.3 % (0.0-4.0); HEMOGLOBIN 14.2 g/dL (14.0-18.0); LYMPHOCYTES # (AUTO) 1.4 K/uL (1.0-5.5); LYMPHOCYTES % (AUTO) 11.2 % (20.5-51.5); MEAN CORPUSCULAR HEMOGLOBIN 31 pg (27-31); MEAN CORPUSCULAR HGB CONC 33 % (32-36); MEAN CORPUSCULAR VOLUME 94 fL (79.0-98.0); MONOCYTES # (AUTO) 0.9 K/uL (0.0-1.0); MONOCYTES % (AUTO) 7.5 % (1.7-9.3); NEUTROPHILS # (AUTO) 10.1 K/uL (1.8-7.7); NEUTROPHILS % (AUTO) 79.8 % (40.0-70.0); PLATELET COUNT (AUTO) 519 K/uL (130-430); RED BLOOD CELL COUNT(AUTO) 4.56 MIL/uL (4.2-6.2); WHITE BLOOD COUNT (AUTO) 12.7 K/uL (4.8-10.8)
--- NOTE | 2020-06-07 14:00 | NUR ---
ASSISTED PATIENT TO USE BEDSIDE COMMODE HAD LARGE BM FORMED.
[2020-06-07] MEDS: DEXAMETHASONE SOD PHOSPHATE 10 MG/ML VIAL IVP SCH (17:00)
--- NOTE | 2020-06-07 17:02 | NUR ---
INFORMED RN DEJA THAT PT IS OFF MONITORING.
--- NOTE | 2020-06-07 18:50 | NUR ---
ALL NEEDS METS, NO S/S OF DISTRESS, VITAL SIGN STABLE, AFEBRILE. NO OTHER CONCERNED NOTED.
--- NOTE | 2020-06-07 20:00 | NUR ---
AAOX4. IN NO APPARENT DISTRESS. ON O2 WITH HIGH FLOW AT 30L/MIN = 85%. HOB UP TO COMFORT. TALKING ON THE PHONE WITH .
--- NOTE | 2020-06-07 20:30 | NUR ---
Assessment completed. patient able to take PO medications. Using urinal. self reposition for comfort.
[2020-06-07] MEDS ORDERED: PIPERACILLIN/TAZOBACTAM 4.5 GM/VIAL (ZOSYN) IV ONE (20:37)
--- NOTE | 2020-06-07 22:00 | NUR ---
VOIDED 475CC CLEAR YELLOW URINE VIA URINAL.
[2020-06-08] VITALS (17 sets, daily range): BP systolic 93–130
--- NOTE | 2020-06-08 | NUR ---
DOZES ON AND OFF. VAL PICC LINE/MIDLINE DRSG D/I. ABLE TO REPOSITION SELF WELL. VOIDED 575CC CLEAR FILIBERTO URINE VIA URINAL.
--- NOTE | 2020-06-08 02:00 | NUR ---
SLEPT INTERMITTENTLY. VOIDED 350CC CLEAR FILIBERTO URINE VIA URINAL.
--- NOTE | 2020-06-08 04:00 | NUR ---
SLEPT FOR LONG PERIODS OF TIME. NO DISTRESS NOTED. TURNS SELF WELL.
[2020-06-08] MEDS: PIPERACILLIN/TAZO 4.5GM/DEX-IS 100 ML IV SCH ×3 (05:49→23:21)
--- NOTE | 2020-06-08 06:00 | NUR ---
SLEPT WELL MOST OF NOC. VOIDED 575CC CLEAR YELLOW URINE VIA URINAL. NO COMPLAINTS OFFERED AT THIS TIME. REMAINS IN GUARDED CONDITION.
--- NOTE | 2020-06-08 08:00 | NUR ---
AM ASSESSMENT. PT ALERT, AFEBRILE, VITAL SIGNS GOOD, NO COMPLAINTS OF PAIN, NEEDS ASSESSED AND ATTENDED, MIDLINE IN RIGHT UPPER ARM, IVF D51/2 NS WITH 20 MEQ KCL AT 75 ML PER HR, WILL CONTINUE TO MONITOR.
[2020-06-08 08:42] LABS: BASOPHILS # (AUTO) 0.1 K/uL (0.0-0.2); BASOPHILS % (AUTO) 0.5 % (0.0-2.0); EOSINOPHILS # (AUTO) 0.1 K/uL (0.0-0.4); EOSINOPHILS % (AUTO) 0.7 % (0.0-4.0); HEMATOCRIT 42.5 % (36-54); LYMPHOCYTES % (AUTO) 14.4 % (20.5-51.5); MEAN CORPUSCULAR HEMOGLOBIN 31 pg (27-31); MEAN CORPUSCULAR HGB CONC 33 % (32-36); MEAN CORPUSCULAR VOLUME 94 fL (79.0-98.0); MONOCYTES # (AUTO) 1.2 K/uL (0.0-1.0); MONOCYTES % (AUTO) 9.1 % (1.7-9.3); NEUTROPHILS # (AUTO) 10.2 K/uL (1.8-7.7); NEUTROPHILS % (AUTO) 75.3 % (40.0-70.0); PLATELET COUNT (AUTO) 531 K/uL (130-430); RED BLOOD CELL COUNT(AUTO) 4.53 MIL/uL (4.2-6.2); RED CELL DISTRIBUTION WIDTH 13.7 % (9.0-15.0); WHITE BLOOD COUNT (AUTO) 13.6 K/uL (4.8-10.8)
[2020-06-08] MEDS: ASCORBIC ACID 500 MG TABLET PO SCH ×2 (08:56→21:00)
[2020-06-08] MEDS: CHOLECALCIFEROL (VITAMIN D3) 5,000 UNIT TABLET PO SCH (08:56)
[2020-06-08] MEDS: guaiFENesin ER 600 MG TAB PO SCH ×2 (08:57→21:00)
[2020-06-08] MEDS: ENOXAPARIN SODIUM 40 MG/0.4 ML SYRINGE SUBCUT SCH ×2 (08:58→21:00)
[2020-06-08 09:28] LABS: ALBUMIN 2.9 g/dL (3.4-4.8); CALCIUM 9.3 mg/dL (8.4-11.0); CREATININE 0.91 mg/dL (0.55-1.30); TOTAL BILIRUBIN 0.9 mg/dL (0.0-1.0)
--- NOTE | 2020-06-08 10:00 | NUR ---
BREATHING. ENCOURAGED TO USE THE SPIROMETER AND PT ABLE TO BRING IT UP TO 2000 ML LEVEL WITHOUT RESPIRATORY DISCOMFORTS.
[2020-06-08] MEDS: KCL 20 mEq in D5NS 1000 mL 1,000 ML IV SCH ×2 (10:45→19:40)
[2020-06-08] MEDS: ALBUTEROL MDI INHALATION 8 GM INH INH SCH ×3 (12:23→20:15)
--- NOTE | 2020-06-08 16:00 | NUR ---
ACTIVITY PT HAD JUST PRONED HIMSELF, NO COMPLAINTS OF BODY DISCOMFORTS.
[2020-06-08] MEDS: DEXAMETHASONE SOD PHOSPHATE 10 MG/ML VIAL IVP SCH (16:05)
--- NOTE | 2020-06-08 16:10 | NUR ---
HYGIENE. BROUGHT IN TOILETRIES AND MILD ASSISTANCE REQUIRED, HAD SPONGE BATH AND ORAL HYGIENE.
--- NOTE | 2020-06-08 18:10 | NUR ---
IV MEDS. REMDESIVIR IVPB ADMINISTERED ORDERED.
--- NOTE | 2020-06-08 19:30 | NUR ---
Opening note Received report and assumed care. Patient AAO x4 resting in bed on semifawlers position. No signs of respiratory distress noted; using IS as per nurses instructions. High flow canula in place 35 L 70% FIO2 with saturations 90-96%. Able to prone self and able to feed self. VAL picc in place patent. will continue to monitor as per unit protocol.
--- NOTE | 2020-06-08 20:30 | NUR ---
Assessment completed. patient able to take PO medications. Using urinal. self reposition for comfort.
[2020-06-08] MEDS: BUDESONIDE 0.5 MG/2 ML AMPUL.NEB INH SCH (21:00)
[2020-06-09] VITALS (17 sets, daily range): BP systolic 86–131
--- NOTE | 2020-06-09 00:30 | NUR ---
Assessment completed. No signs of distress. Tolerating high flow well. will continue to monitor. call light within reach.
[2020-06-09] MEDS: PIPERACILLIN/TAZO 4.5GM/DEX-IS 100 ML IV SCH ×3 (06:41→22:05)
[2020-06-09] MEDS: ALBUTEROL MDI INHALATION 8 GM INH INH SCH ×4 (07:37→18:00)
--- NOTE | 2020-06-09 08:00 | NUR ---
AM ASSESSMENT. PT HEARD TALKING OVER THE PHONE WHEN APPROACHED, INTRODUCED SELF, EXPLAINED PROCEDURE IN A CLEAR MANNER, VITAL SIGNS TAKEN, NO COMPLAINTS OF BODY PAINS, NEEDS ASSESSED AND ATTENDED, CALL LIGHT IN REACH AND ENCOURAGED PT TO PUSH THE CALL BUTTON FOR HELP, WILL CONTINUE TO MONITOR.
[2020-06-09] MEDS: guaiFENesin ER 600 MG TAB PO SCH ×2 (08:46→20:30)
[2020-06-09] MEDS: ASCORBIC ACID 500 MG TABLET PO SCH ×2 (08:46→20:29)
[2020-06-09] MEDS: CHOLECALCIFEROL (VITAMIN D3) 5,000 UNIT TABLET PO SCH (08:46)
[2020-06-09] MEDS: BUDESONIDE 0.5 MG/2 ML AMPUL.NEB INH SCH ×2 (09:00→20:04)
[2020-06-09 09:16] LABS: ALBUMIN 2.9 g/dL (3.4-4.8); BILIRUBIN,DIRECT 0.3 mg/dL (0.0-0.3); TOTAL BILIRUBIN 0.8 mg/dL (0.0-1.0)
--- NOTE | 2020-06-09 09:39 | NUR ---
ABG RESULT CALLED IN TO DR PURDY, NO NEW ORDERS RECEIVED.
[2020-06-09 12:29] LABS: CALCIUM 9.4 mg/dL (8.4-11.0); CREATININE 0.91 mg/dL (0.55-1.30); POTASSIUM 3.8 mmol/L (3.5-5.1)
[2020-06-09] MEDS: ENOXAPARIN SODIUM 40 MG/0.4 ML SYRINGE SUBCUT SCH ×2 (12:34→20:29)
--- NOTE | 2020-06-09 13:00 | NUR ---
DIET FOOD TRAY SERVED FOR LUNCH. PT'S PLAN TO LIE FLAT ON HIS STOMACH FEW HOURS AFTER LUNCH.
[2020-06-09] MEDS: KCL 20 mEq in D5NS 1000 mL 1,000 ML IV SCH (14:01)
--- NOTE | 2020-06-09 16:05 | NUR ---
BREATHING ENCOURAGED PT TO USE INCENTIVE SPIROMETER, ABLE TO BLOW AIR AND REACHING TO 1500 ML LEVEL, WITH MILD ABDOMINAL SORENESS AFTER EACH ATTEMPT HE MADE.
[2020-06-09] MEDS: DEXAMETHASONE SOD PHOSPHATE 10 MG/ML VIAL IVP SCH (16:10)
--- NOTE | 2020-06-09 20:00 | NUR ---
SITTING IN BED FEET DANGLING ON SIDE OF BED. TALKING TO ON PHONE. VOIDED 400CC CLEAR FILIBERTO URINE VIA URINAL. ON HIGH FLOW O2 AT 35L/MIN APPROX 65%. SR.
--- NOTE | 2020-06-09 21:00 | NUR ---
OOB TO BSC, 1 LARGE FORMED BROWN STOOL DEFECATED. VOIDED 200CC CLEAR FILIBERTO URINE VIA URINAL. SELF PRISCILLA-CARE . BHARAT WELL. BACK TO BED WITHOUT INCIDENCE.
[2020-06-10] VITALS (17 sets, daily range): BP systolic 106–134
--- NOTE | 2020-06-10 | NUR ---
DOZES ON AND OFF. DENIES PAIN. VSS.
--- NOTE | 2020-06-10 01:25 | NUR ---
FIO2 DECREASED TO 60% BY RT.
--- NOTE | 2020-06-10 02:00 | NUR ---
VOIDED 750CC CLEAR FILIBERTO URINE VIA URINAL. TURNS SELF WELL.
--- NOTE | 2020-06-10 04:00 | NUR ---
SLEPT INTERMITTENTLY. NO DISTRESS NOTED. NO COMPLAINTS OFFERED AT THIS TIME.
[2020-06-10] MEDS: PIPERACILLIN/TAZO 4.5GM/DEX-IS 100 ML IV SCH ×3 (05:55→21:59)
--- NOTE | 2020-06-10 06:00 | NUR ---
AWAKE, PLAYING WITH PHONE. VOIDED 650CC CLEAR FILIBERTO URINE VIA URINAL. NO COMPLAINTS OFFERED AT THIS TIME. REMAINS IN GUARDED CONDITION.
[2020-06-10] MEDS: ALBUTEROL MDI INHALATION 8 GM INH INH SCH ×4 (07:38→19:40)
[2020-06-10 07:51] LABS: ALBUMIN 2.9 g/dL (3.4-4.8); CALCIUM 8.9 mg/dL (8.4-11.0); CREATININE 0.95 mg/dL (0.55-1.30); POTASSIUM 3.8 mmol/L (3.5-5.1); TOTAL BILIRUBIN 0.7 mg/dL (0.0-1.0)
--- NOTE | 2020-06-10 08:00 | NUR ---
AM ASSESSMENT. PT ALERT, VITAL SIGNS STABLE, ABLE TO VERBALIZE HIS BASIC NEEDS AND ATTENDED, PLAN OF CARE DISCUSSED WITH PT AND HIS VALERIE, ENCOURAGED PT TO USE INCENTIVE SPIROMETER HOURLY.
[2020-06-10] MEDS: ASCORBIC ACID 500 MG TABLET PO SCH ×2 (08:09→21:04)
[2020-06-10] MEDS: guaiFENesin ER 600 MG TAB PO SCH ×2 (08:10→21:05)
[2020-06-10] MEDS: CHOLECALCIFEROL (VITAMIN D3) 5,000 UNIT TABLET PO SCH (08:11)
[2020-06-10] MEDS: ENOXAPARIN SODIUM 40 MG/0.4 ML SYRINGE SUBCUT SCH ×2 (08:12→21:06)
--- NOTE | 2020-06-10 13:10 | NUR ---
RT NOTES DECREASED FIO2 ON HIGH-FLOW NASAL CANNULA TO 50% PER DR. PURDY. RN BREANNA IS AWARE. PT TOLERATING WELL.
--- NOTE | 2020-06-10 14:00 | NUR ---
NURSING. PT SITTING IN BED, HOLDING AND ACCESSING HIS PHONE, O2 SATURATION READING 94%, NO SHORTNESS OF BREATH, WILL CONTINUE TO MONITOR PT.
[2020-06-10] MEDS: KCL 20 mEq in D5NS 1000 mL 1,000 ML IV SCH (15:56)
[2020-06-10] MEDS: DEXAMETHASONE SOD PHOSPHATE 10 MG/ML VIAL IVP SCH (15:58)
--- NOTE | 2020-06-10 20:00 | NUR ---
AAOX4. IN NO APPARENT DISTRESS. VSS. DENIES PAIN. LAYING IN BED IN PRONE POSITION. LAID BACK IN SUPINE POSITION. TALKING TO ON PHONE.
[2020-06-10] MEDS: BUDESONIDE 0.5 MG/2 ML AMPUL.NEB INH SCH (21:00)
--- NOTE | 2020-06-10 22:00 | NUR ---
VOIDED 350CC CLEAR FILIBERTO URINE VIA URINAL.
[2020-06-11] VITALS (20 sets, daily range): BP systolic 0–142
--- NOTE | 2020-06-11 | NUR ---
AWAKE, PLAYING WITH PHONE. VOIDED 425CC CLEAR FILIBERTO URINE VIA URINAL.
[2020-06-11] MEDS: KCL 20 mEq in D5NS 1000 mL 1,000 ML IV SCH ×2 (01:00→15:06)
[2020-06-11] MEDS: ALBUTEROL MDI INHALATION 8 GM INH INH SCH ×4 (01:35→18:10)
--- NOTE | 2020-06-11 04:00 | NUR ---
SLEPT INTERMITTENTLY. VOIDED 725 CC CLEAR FILIBERTO URINE VIA URINAL.
[2020-06-11] MEDS: PIPERACILLIN/TAZO 4.5GM/DEX-IS 100 ML IV SCH ×3 (05:58→22:40)
--- NOTE | 2020-06-11 06:00 | NUR ---
AWAKE. VOIDED 650CC CLEAR FILIBERTO URINE VIA URINAL. NO COMPLAINTS OFFERED AT THIS TIME. REMAINS IN GUARDED CONDITION.
[2020-06-11 06:52] LABS: CALCIUM 8.9 mg/dL (8.4-11.0); CREATININE 0.99 mg/dL (0.55-1.30); POTASSIUM 4.3 mmol/L (3.5-5.1); TOTAL BILIRUBIN 0.6 mg/dL (0.0-1.0)
[2020-06-11] MEDS: ASCORBIC ACID 500 MG TABLET PO SCH ×2 (07:58→22:41)
[2020-06-11] MEDS: CHOLECALCIFEROL (VITAMIN D3) 5,000 UNIT TABLET PO SCH (07:59)
[2020-06-11] MEDS: guaiFENesin ER 600 MG TAB PO SCH ×2 (07:59→22:42)
[2020-06-11] MEDS: ENOXAPARIN SODIUM 40 MG/0.4 ML SYRINGE SUBCUT SCH ×2 (08:00→22:44)
--- NOTE | 2020-06-11 08:00 | NUR ---
A/OX4. BSC PRIVILEGES. SR ON MONITOR. ON HI FLOW O2. IV ON THE RIGHT FA CENTRAL LINE, SITE INTACT AND PATENT. CALL LIGHT IN PLACE, BED LOCKED AT THE LOWEST POSITION, INSTRUCTED PATIENT TO USE CALL LIGHT FOR NEEDS
[2020-06-11] MEDS: BUDESONIDE 0.5 MG/2 ML AMPUL.NEB INH SCH (09:00)
--- NOTE | 2020-06-11 12:00 | NUR ---
PATIENT IS RESTING AT THIS TIME. NO SIGNS OF DISTRESS NOTED.
--- NOTE | 2020-06-11 12:00 | NUR ---
PATIENT IS SEEN EATING LUNCH.
[2020-06-11] MEDS: DEXAMETHASONE SOD PHOSPHATE 10 MG/ML VIAL IVP SCH (15:05)
--- NOTE | 2020-06-11 16:00 | NUR ---
PATIENT IS ASSISTED TO THE BATHROOM FOR BM. TOLERATED WITHOUT DISTRESS
--- NOTE | 2020-06-11 17:34 | NUR ---
Nutrition F/U RD reviewed pt's current EMR record including diet Hx, physician notes, nursing notes, pertinent labs/meds/procedures, care trends, and care activity. Admission Dx: COVID positive/pneumonia PMH: none No SARS-CoV-2 Ag (Rapid)/(PCR) labs available as of 06/11 Current Diet Order/Nutrition Support: Regular x12 days Subjective Info: RD reviewed EMR as bedside interview was deferred d/t isolation precautions and PPE conservation efforts. Pt appears to be tolerating diet well and eating adequately to meet nutritional demands. Current diet remains appropriate. Pertinent Medications: Reviewed Pertinent Labs: Reviewed Skin Integrity Comment: Hi scale: 20; no skin breakdown noted per EMR Current % PO 96% average x6 meals Estimated Energy Expenditure (kcals/day) 6603-5682 kcal/day (30-35 kcal/kg Adj IBW for acute state) Estimated Protein Required (g/day) 117-180 gm/day (1.3-2 gm/kg Adj IBW for acute state) Estimated Fluid Required (l/day) 2.7-3.2 L/day (1 ml/kcal/day for maintenance) Problem/Etiology/Signs/Symptoms Increased nutritional needs related to metabolic demands as evidenced by estimated nutritional requirements for acute state. *met Expected Outcomes/Goals - Monitor appetite and PO intakes w/ goal of pt meeting greater than 80% of estimated nutritional needs, labs trending WNL, normal GI function, and skin integrity/wt maintenance Dietitian Recommendations * Recommend continuing regular diet * Double portions of proteins/vegetables Follow Up Low Risk: F/U in 7 days
--- NOTE | 2020-06-11 17:37 | NUR ---
Dietitian Recommendations * Recommend continuing regular diet * Double portions of proteins/vegetables LP, RD Please refer to Nutrition F/U for details.
--- NOTE | 2020-06-11 18:20 | NUR ---
PATIENT IS HAVING DINNER
--- NOTE | 2020-06-11 20:00 | NUR ---
JAELNT WAS ACCEPTED AND ASSESS DONE , PATIENT ALERT, RESPOND TO ALL COMMANDS, PATIENT IS SELF CARE , USED THE URINAL VOIDING HAS AN COMMODE CHAIR AT BEDSIDE IVF INFUSION , HAS AN MIDLINE PICC PATENT KATELYN PAIN HAS AN HI FLOW NASAL CANNULA , 50%,30 LITER SAT 94-96% AND STABLE
[2020-06-12] VITALS (24 sets, daily range): BP systolic 0–124
--- NOTE | 2020-06-12 | NUR ---
PATIENT IS STABLE MAINTAIN THE HI FLOW OXYGEN , PATIENT IS IN PRONE POSITION , NOTICE FACE IS FLUSH , NO PAIN OR TEMP OCCASIONAL WILL COUGH NON-PRODUCTIVE , CHEST ESSENTIAL CLEAR URINE OUT PUT IS GOOD NO BM AT THIS TIME , RESTING AND ASLEEP. STABLE
--- NOTE | 2020-06-12 | NUR ---
PATIENT SITTING ON SIDE OF BED TALKING ON CELL WITH FAMILY IS THE STABLE KATELYN PAIN WAS ALSO EATING HAD REMOVE THE NASAL CANNULA FOE FEW MIN HAD DESAT TO THE 80 WAS NOTICE ON MONITOR , PATIENT IS TO HAVE AN TREATMENT SOON AND LAID PRONE FOR TWO HOUR, STABLE
--- NOTE | 2020-06-12 05:30 | NUR ---
NO CHANGE WITH THE PATIENT URINE OUT PUT IS OVER 1200 CONSUME SMALL AMOUNT OF PUDDING WILL REMOVE THE NASAL CANNULA WHILE EATING . STAT FOOD GET INTO THE NASAL CANNULA , STABLE WILL COCNTINUED WITH PLAN OF CARE, STABLE
[2020-06-12] MEDS: PIPERACILLIN/TAZO 4.5GM/DEX-IS 100 ML IV SCH ×3 (06:49→21:49)
[2020-06-12] MEDS: KCL 20 mEq in D5NS 1000 mL 1,000 ML IV SCH ×2 (07:00→16:01)
--- NOTE | 2020-06-12 07:30 | NUR ---
Opening Notes Pt received from night nurse Shanika using SBAR.
[2020-06-12] MEDS: guaiFENesin ER 600 MG TAB PO SCH ×2 (08:38→21:46)
[2020-06-12] MEDS: CHOLECALCIFEROL (VITAMIN D3) 5,000 UNIT TABLET PO SCH (08:38)
[2020-06-12] MEDS: ASCORBIC ACID 500 MG TABLET PO SCH ×2 (08:38→21:46)
[2020-06-12] MEDS: ENOXAPARIN SODIUM 40 MG/0.4 ML SYRINGE SUBCUT SCH ×2 (08:39→21:48)
--- NOTE | 2020-06-12 08:45 | NUR ---
Education Pt provided education on the benefit of self proning, the use and benefit of the incentive spirometor and turn cough / deep breath. Pt was able to return demonstration and confirmed education.
--- NOTE | 2020-06-12 15:10 | NUR ---
Supine Pt is observed to be laying supine during afternoon nap.
[2020-06-12] MEDS: DEXAMETHASONE SOD PHOSPHATE 10 MG/ML VIAL IVP SCH (15:53)
--- NOTE | 2020-06-12 19:19 | NUR ---
Closing Notes Pt endorsed to night RN using SBAR
--- NOTE | 2020-06-12 19:25 | NUR ---
Opening Note Received report from AM nurse using SBAR approach.
[2020-06-12] MEDS: ALBUTEROL MDI INHALATION 8 GM INH INH SCH ×2 (19:55)
--- NOTE | 2020-06-12 23:45 | NUR ---
MD Dr. Stafford called and asked update on patient. Provided update. New orders received.
[2020-06-13] VITALS (22 sets, daily range): BP systolic 110–174
[2020-06-13] MEDS: ALBUTEROL MDI INHALATION 8 GM INH INH SCH ×4 (03:43→19:39)
[2020-06-13] MEDS: PIPERACILLIN/TAZO 4.5GM/DEX-IS 100 ML IV SCH ×3 (05:55→21:36)
[2020-06-13] MEDS: KCL 20 mEq in D5NS 1000 mL 1,000 ML IV SCH ×2 (05:55→21:36)
--- NOTE | 2020-06-13 07:18 | NUR ---
Received patient and endorsed report from [facility] shift nurse. Side rails x 3 up. Call light with in reach. Patient sleeping in bed.
[2020-06-13] MEDS: guaiFENesin ER 600 MG TAB PO SCH ×2 (08:18→21:36)
[2020-06-13] MEDS: ASCORBIC ACID 500 MG TABLET PO SCH ×2 (08:18→21:36)
[2020-06-13] MEDS: CHOLECALCIFEROL (VITAMIN D3) 5,000 UNIT TABLET PO SCH (08:18)
[2020-06-13] MEDS: ENOXAPARIN SODIUM 40 MG/0.4 ML SYRINGE SUBCUT SCH ×2 (08:19→21:37)
--- NOTE | 2020-06-13 13:30 | NUR ---
MD Ames called, gave update per request. request for incentive spirometer use, orders placed.
[2020-06-13] MEDS: ACETAMINOPHEN 325 MG TABLET PO PRN (13:57)
--- NOTE | 2020-06-13 14:14 | NUR ---
Called MD Stafford to report latest ABGs, no new order.
[2020-06-13] MEDS: DEXAMETHASONE SOD PHOSPHATE 10 MG/ML VIAL IVP SCH (14:15)
--- NOTE | 2020-06-13 14:18 | NUR ---
Educated patient the benefits and importance of using an incentive spirometer, stated has used every hour.
--- NOTE | 2020-06-13 14:50 | NUR ---
Md Vance at bedside assessing patient, gave update per request. Addendum: 06/13/20 at 1505 by Jennifer Hinojosa RN EXTRA NOTE: INFORMED WANTS TO CONTACT HER, AGREED.
--- NOTE | 2020-06-13 15:00 | NUR ---
MD CASIANO CALLED AND GAVE UPDATE.
--- NOTE | 2020-06-13 19:30 | NUR ---
Endorsed patient and gave report to oncoming shift nurse. Patient sitting in bed eating dinner awake and alert, denies pain. Side rails x 3 up. Call light with in reach.
--- NOTE | 2020-06-13 19:31 | NUR ---
Opening Note Received report from AM nurse using SBAR approach.
[2020-06-13] MEDS: BUDESONIDE 0.5 MG/2 ML AMPUL.NEB INH SCH (19:46)
[2020-06-13] MEDS ORDERED: ENOXAPARIN SODIUM 40 MG/0.4 ML SYRINGE ONE (21:34)
--- NOTE | 2020-06-13 23:00 | NUR ---
MD Dr. Stafford in to see patient. No new orders received.
[2020-06-14] VITALS (24 sets, daily range): BP systolic 115–130
[2020-06-14] MEDS: ALBUTEROL MDI INHALATION 8 GM INH INH SCH ×4 (01:44→18:00)
[2020-06-14] MEDS: PIPERACILLIN/TAZO 4.5GM/DEX-IS 100 ML IV SCH ×3 (05:45→21:53)
--- NOTE | 2020-06-14 07:20 | NUR ---
Closing Note Endorsed report to AM nurse using SBAR approach.
--- NOTE | 2020-06-14 07:21 | NUR ---
Received patient and report from second operator nurse. Patient in bed with side rails x 3 up. Call light with in reach.
[2020-06-14] MEDS ORDERED: ENOXAPARIN SODIUM 40 MG/0.4 ML SYRINGE ONE (08:02)
[2020-06-14] MEDS: ASCORBIC ACID 500 MG TABLET PO SCH ×2 (08:03→21:53)
[2020-06-14] MEDS: CHOLECALCIFEROL (VITAMIN D3) 5,000 UNIT TABLET PO SCH (08:03)
[2020-06-14] MEDS: guaiFENesin ER 600 MG TAB PO SCH ×2 (08:03→21:53)
[2020-06-14] MEDS: ENOXAPARIN SODIUM 40 MG/0.4 ML SYRINGE SUBCUT SCH ×2 (08:06→21:54)
[2020-06-14] MEDS: KCL 20 mEq in D5NS 1000 mL 1,000 ML IV SCH ×2 (08:07→21:53)
--- NOTE | 2020-06-14 13:20 | NUR ---
EVERETT MONTANEZ TRUCKLOAD CHECKER LOW PRESSURE BOILER TENDER TO INFORM THE NURSE THAT THE HR IS ELVATED AND STURATION IS GOING DOWN IN THE 80S.
--- NOTE | 2020-06-14 14:31 | NUR ---
Called MD Stafford to inform latest ABGs, ordered to encourage patient to prone every 4 hours as tolerated. Orders placed.
[2020-06-14] MEDS: DEXAMETHASONE SOD PHOSPHATE 10 MG/ML VIAL IVP SCH (15:15)
--- NOTE | 2020-06-14 17:30 | NUR ---
MD Vance at bedside assessing patient.
--- NOTE | 2020-06-14 19:15 | NUR ---
Endorsed patient and gave report to retail shift manager nurse. Patient sitting in bed with side rails x 3 up, call light with in reach, awake and eating dinner.
--- NOTE | 2020-06-14 19:20 | NUR ---
Opening Note Received report from AM nurse using SBAR approach.
--- NOTE | 2020-06-14 19:25 | NUR ---
CHANGE OF SHIFT; endorsed by day shift. no resp. distress. transferred out of ICU. on contact isolation for Covid. call light within reach.
--- NOTE | 2020-06-14 19:25 | NUR ---
CHANGE OF SHIFT; endorsed pt. no resp. distress. transferred out from ICU. on ciontact isolation for Covid. call light within reach.
--- NOTE | 2020-06-14 20:00 | NUR ---
Family Patient's called and asked for an update. Provided update for and answered all questions.
--- NOTE | 2020-06-14 20:30 | NUR ---
NOTES: pt. sitting at the edge of the bed. O2 back @ 3 liters per nasal cannula. IVF on rt. arm with midline cath. VS checked. on ekg monitor and shows sinus rhythm. on contact isolation for Covid. call light within reach.
[2020-06-14] MEDS: BUDESONIDE 0.5 MG/2 ML AMPUL.NEB INH SCH (21:00)
--- NOTE | 2020-06-14 22:00 | NUR ---
MD Dr. Stafford in to see patient. No new orders received.
[2020-06-15] VITALS (18 sets, daily range): BP systolic 112–135
[2020-06-15] MEDS: ALBUTEROL MDI INHALATION 8 GM INH INH SCH ×2 (01:42→19:56)
[2020-06-15] MEDS: PIPERACILLIN/TAZO 4.5GM/DEX-IS 100 ML IV SCH ×3 (06:45→21:06)
--- NOTE | 2020-06-15 07:30 | NUR ---
Report received from Neva WOODRUFF
--- NOTE | 2020-06-15 07:30 | NUR ---
Closing Note Endorsed report to AM nurse using SBAR approach.
--- NOTE | 2020-06-15 08:15 | NUR ---
pt is AAOx4. Current on 30 L high flow O2, 46% fio2. Will continue to monitor
[2020-06-15] MEDS: ASCORBIC ACID 500 MG TABLET PO SCH ×2 (09:39→20:30)
[2020-06-15] MEDS: guaiFENesin ER 600 MG TAB PO SCH ×2 (09:39→20:30)
[2020-06-15] MEDS: ENOXAPARIN SODIUM 40 MG/0.4 ML SYRINGE SUBCUT SCH ×2 (09:43→20:31)
[2020-06-15] MEDS: CHOLECALCIFEROL (VITAMIN D3) 5,000 UNIT TABLET PO SCH (09:44)
--- NOTE | 2020-06-15 12:20 | NUR ---
Pt currently having lunch.
[2020-06-15] MEDS: KCL 20 mEq in D5NS 1000 mL 1,000 ML IV SCH (13:38)
[2020-06-15] MEDS: DEXAMETHASONE SOD PHOSPHATE 10 MG/ML VIAL IVP SCH (14:19)
--- NOTE | 2020-06-15 17:14 | NUR ---
RUE midline dressing changed
--- NOTE | 2020-06-15 19:30 | NUR ---
CARE ENDORSED TO THE ONCOMING RN
--- NOTE | 2020-06-15 19:30 | NUR ---
Opening note Received report from Marcie WOODRUFF.
--- NOTE | 2020-06-15 21:00 | NUR ---
RN rounds pt seen resting in bed, requested food as his tray was not delivered. Sandwiches and snacks provided.
[2020-06-16] VITALS (10 sets, daily range): BP systolic 115–150
--- NOTE | 2020-06-16 | NUR ---
RN Rounds Pt seen resting in bed, respirations even and unlabored, NAD.
[2020-06-16] MEDS: ALBUTEROL MDI INHALATION 8 GM INH INH SCH ×2 (01:26→19:25)
--- NOTE | 2020-06-16 03:30 | NUR ---
RN Rounds Pt removed high flow cannula d/t excess water in tubing, while off O2- pt with SpO2 91%. Pt placed on NC at 4L, tolerated well. SpO2 now 95%. RT aware.
[2020-06-16] MEDS: PIPERACILLIN/TAZO 4.5GM/DEX-IS 100 ML IV SCH (05:32)
--- NOTE | 2020-06-16 06:30 | NUR ---
RN Rounds Pt seen resting in bed, respirations even and unlabored, NAD.
--- NOTE | 2020-06-16 07:30 | NUR ---
Closing note Report given to oncoming nurse.
[2020-06-16] MEDS: KCL 20 mEq in D5NS 1000 mL 1,000 ML IV SCH ×2 (08:22→14:20)
[2020-06-16] MEDS: CHOLECALCIFEROL (VITAMIN D3) 5,000 UNIT TABLET PO SCH (08:24)
[2020-06-16] MEDS: guaiFENesin ER 600 MG TAB PO SCH ×2 (08:24→20:52)
[2020-06-16] MEDS: ASCORBIC ACID 500 MG TABLET PO SCH ×2 (08:24→20:52)
[2020-06-16] MEDS: ENOXAPARIN SODIUM 40 MG/0.4 ML SYRINGE SUBCUT SCH (08:25)
--- NOTE | 2020-06-16 08:30 | NUR ---
Opening note patient resting in bed, a/ox4, denies pain, on 4L via nasal cannula, tolerating well, educated patient on plan of care and call light system, he verbalized understanding, educated patient on scheduled medications uses and potential side effects, he verbalized understanding and tolerated well, continuing to monitor patient, bed in lowest position, two side rails up, call light within reach, fall, aspiration and isolation precautions in place.
--- NOTE | 2020-06-16 13:08 | NUR ---
Dr. Vance rounds assessed patient, continue with transfer to Telemetry today, will follow up.
[2020-06-16] MEDS: PIPERACILLIN/TAZO 4.5 GM in NS 100 ML IV SCH ×2 (14:00→21:18)
[2020-06-16] MEDS ORDERED: PIPERACILLIN/TAZO 4.5 GM in D5W 100 ML IV SCH (14:00)
--- NOTE | 2020-06-16 14:00 | NUR ---
Patient transferred to Telemetry, room 125A, SBAR report given to Rex WOODRUFF, patient in stable condition and patient made aware of status change.
--- NOTE | 2020-06-16 14:00 | NUR ---
nurse note received sbar from RN Lucio, patient in bed, respirations even, non labored, bed in low and locked position call light within reach. patient denies any pain or discomfort
[2020-06-16] MEDS: DEXAMETHASONE SOD PHOSPHATE 10 MG/ML VIAL IVP SCH (15:15)
--- NOTE | 2020-06-16 17:00 | NUR ---
nurse note patient in bed, respirations even, non labored, bed in low and locked position, call light within reach, bed alarm on, ivf's running as ordered, 3L nasal canula O2, patient denies any pain or discomfort
--- NOTE | 2020-06-16 20:30 | NUR ---
NOTES: pt. checked , sitting at the edge of the bed. on 3 liters O@ per nasal cannula. IVF via rt. arm with midline cath. moves all extremities. on nuclear monitoring technician and shows sinus rhythm. call light within reach.
--- NOTE | 2020-06-17 00:30 | NUR ---
NOTES: pt. sleeping when checked. no acute distress. no complaints noted.
[2020-06-17] MEDS: ALBUTEROL MDI INHALATION 8 GM INH INH SCH ×4 (01:43→20:00)
--- NOTE | 2020-06-17 03:00 | NUR ---
NOTES: cardiac pattern unchanged. condition observed, continue to monitor. call light within reach.
[2020-06-17] MEDS: KCL 20 mEq in D5NS 1000 mL 1,000 ML IV SCH (04:58)
[2020-06-17 05:00] VITALS: BP_SYST 135
--- NOTE | 2020-06-17 05:30 | NUR ---
NOTES: pt. sleeping, awakened, due IV antibiotic given. kept on 3 liters O@ per nasal cannula.
[2020-06-17] MEDS: PIPERACILLIN/TAZO 4.5 GM in NS 100 ML IV SCH ×2 (06:00→13:38)
--- NOTE | 2020-06-17 06:33 | NUR ---
CLOSING NOTES; PT. WENT BACK TO SLEEP. NO DISTRESS. FOR FURTHER CARE AND ASSIST. CALL LIGHT WITHIN REACH. WILL ENDORSE TO INCOMING SHIFT.
--- NOTE | 2020-06-17 08:00 | NUR ---
ON A/OX4. ON 3L NC. WILL TEST PATIENT IF HE CAN TOLERATE ROOM AIR. SR-ST ON MONITOR. CALL LIGHT IN PLACE, BED IS LOCKED, ALARMED, AND AT THE LOWEST LEVEL. FALL SAFETY EDUCATION PROVIDED. FALL, SAFETY, AND RESPIRATORY PRECAUTIONS WILL BE TAKEN THROUGHOUT THE SHIFT.
[2020-06-17] MEDS: guaiFENesin ER 600 MG TAB PO SCH (08:44)
[2020-06-17] MEDS: ASCORBIC ACID 500 MG TABLET PO SCH (08:44)
[2020-06-17] MEDS ORDERED: ENOXAPARIN SODIUM 40 MG/0.4 ML SYRINGE SUBCUT SCH (09:00)
[2020-06-17] MEDS: CHOLECALCIFEROL (VITAMIN D3) 5,000 UNIT TABLET PO SCH (09:00)
[2020-06-17] MEDS: BUDESONIDE 0.5 MG/2 ML AMPUL.NEB INH SCH ×2 (09:00→20:55)
[2020-06-17 09:12] LABS: BASOPHILS % (AUTO) 0.4 % (0.0-2.0); EOSINOPHILS % (AUTO) 0.1 % (0.0-4.0); HEMATOCRIT 41.4 % (36-54); HEMOGLOBIN 13.8 g/dL (14.0-18.0); LYMPHOCYTES # (AUTO) 1.7 K/uL (1.0-5.5); LYMPHOCYTES % (AUTO) 15.5 % (20.5-51.5); MEAN CORPUSCULAR HEMOGLOBIN 32 pg (27-31); MEAN CORPUSCULAR HGB CONC 33 % (32-36); MEAN CORPUSCULAR VOLUME 95 fL (79.0-98.0); MONOCYTES # (AUTO) 0.9 K/uL (0.0-1.0); MONOCYTES % (AUTO) 8.2 % (1.7-9.3); NEUTROPHILS # (AUTO) 8.3 K/uL (1.8-7.7); NEUTROPHILS % (AUTO) 75.8 % (40.0-70.0); PLATELET COUNT (AUTO) 264 K/uL (130-430); RED BLOOD CELL COUNT(AUTO) 4.35 MIL/uL (4.2-6.2); RED CELL DISTRIBUTION WIDTH 15.1 % (9.0-15.0)
[2020-06-17 11:59] VITALS: BP_SYST 135
--- NOTE | 2020-06-17 15:20 | NUR ---
DR. BORREGO IS HERE TO DO ROUNDS. PATIENT'S CONDITION INFORMED, AND HE CLEARS THE PATIENT FOR DISCHARGE ON ID STANDPOINT.
[2020-06-17] MEDS: DEXAMETHASONE SOD PHOSPHATE 10 MG/ML VIAL IVP SCH (15:21)
--- NOTE | 2020-06-17 15:24 | NUR ---
DISCHARGE PLANNING Called Dr Vance & discussed dc planning, gave phone order for dc planning for home O2. Unable to reach pt via room ph & cell on face sheet sounds busy. Called & spoke with Tricia Quiñonez, , verified address correct of face sheet but is [address]. Pt's cell ph [phone] or [phone], pt has both with him. States would be ok with home O2 if needed but has been talking to pt & is off O2. States spoke with RT & informed her he has been off O2 since this morning and doing well. Called & spoke with pt's nurse, states pt has been of Room air, will eval pt while ambulating on room air. Received call back from pt's nurse, states pt has been ambulating around room on room air & sating 90%, no home O2 needed. States will inform Md when comes in to see pt. States that ID consult cleared pt for discharge.
--- NOTE | 2020-06-17 18:45 | NUR ---
PATIENT DISCUSSED WITH DR. CASIANO, WHO IS DOING ROUNDS. DR[facility] TOMORROW.
[2020-06-17] MEDS ORDERED: ZINC220T4 PO (19:06)
[2020-06-17] MEDS ORDERED: DEC4 PO (19:06)
[2020-06-17] MEDS ORDERED: ASPI-1393 PO (19:07)
[2020-06-17] MEDS ORDERED: ALBMDI INH (19:07)
[2020-06-17] MEDS ORDERED: BUDE90AE IH (19:08)
[2020-06-17] MEDS ORDERED: ASCO500T20 PO (19:09)
[2020-06-17 19:30] VITALS: BP_SYST 127
--- NOTE | 2020-06-17 21:30 | NUR ---
NOTES: pt. discharge by nurse Sr, instructions given including Covid information. home in stable condition.
== END 2020-06-17 21:30 | disposition home or self-care (01) | DRG 720 ==
LOC: SED 17:59 → SMU 19:26 → STU 05-30 05:06 → SIC 05-30 06:19 → STU 06-16 14:00
PROVIDERS: ADMIT Family Medicine; ATTEND Family Medicine
PROC: 5A0955A Assistance with Respiratory Ventilation, Greater than 96 Consecutive Hours, High Flow/Velocity Cannula (ICD-10-PCS; 2020-05-29)
PROC: XW13325 Transfusion of Convalescent Plasma (Nonautologous) into Peripheral Vein, Percutaneous Approach, New Technology Group 5 (ICD-10-PCS; 2020-06-03)
PROC: XW033E5 Introduction of Remdesivir Anti-infective into Peripheral Vein, Percutaneous Approach, New Technology Group 5 (ICD-10-PCS; principal; 2020-06-08)
DX: A41.9 Sepsis, unspecified organism (principal); U07.1 COVID-19; J96.01 Acute respiratory failure with hypoxia; E66.01 Morbid (severe) obesity due to excess calories; J12.89 Other viral pneumonia; J45.909 Unspecified asthma, uncomplicated; D72.810 Lymphocytopenia; R64 Cachexia; Z79.899 Other long term (current) drug therapy; Z68.39 Body mass index [BMI] 39.0-39.9, adult
CPT/HCPCS: 36415; 36600; 71045; 80048; 80053; 80076; 82728; 82803-TC; 83615-TC; 83735-TC; 84100-TC; 85025; 85379; 86140; 86900; 86901; 87081; 94640; 94760; 99285; C1751; J0696; J1100; J1650; J2543; J7050; J7060; J7626; P9017

== ENCOUNTER 2021-08-06 20:00 | Emergency (ER) | payer MEDICAID, SELFPAY ==
[~2021-08-06] VITALS: Ht 170.2 cm; Wt 129.3 kg
[~2021-08-06 20:00] MED LIST: ALBMDI INH; ASCO500T20 PO; ASPI-1393 PO; BUDE90AE IH; DEC4 PO; ZINC220T4 PO
[2021-08-06 20:14] VITALS: BP_SYST 127
--- NOTE | 2021-08-06 20:19 | NUR ---
Patient triaged and placed in waiting room. VS checked and patient appears in no acute distress at this time. Accompanied by family , awaiting available bed, and MD notified of need for MSE.
--- NOTE | 2021-08-06 20:40 | NUR ---
Patient to ER bed 2 for evaluation and treatment.
--- NOTE | 2021-08-06 20:55 | NUR ---
ER physician at bedside.
[2021-08-06] MEDS ORDERED: DIAZEPAM 5 MG TABLET (VALIUM) PO ONE (21:15)
[2021-08-06] MEDS ORDERED: KETOROLAC TROMETHAMINE 30 MG VIAL IM ONE (21:15)
[2021-08-06 22:02] VITALS: BP_SYST 132
--- NOTE | 2021-08-06 22:03 | NUR ---
Patient given written and verbal discharge instructions and verbalizes understanding. ER MD discussed with patient the results and treatment provided. Patient in stable condition. ID arm band removed. Rx of given. Patient educated on pain management and to follow up with PMD. Pain Scale . Opportunity for questions provided and answered. Medication side effect fact sheet provided.
== END 2021-08-06 22:03 | disposition home or self-care (01) ==
LOC: SED 20:00
DX: S33.5XXA Sprain of ligaments of lumbar spine, initial encounter (principal); J45.909 Unspecified asthma, uncomplicated; Z79.899 Other long term (current) drug therapy; X50.9XXA Other and unspecified overexertion or strenuous movements or postures, initial encounter; Y93.89 Activity, other specified; Y92.89 Other specified places as the place of occurrence of the external cause; Y99.8 Other external cause status
CPT/HCPCS: 96372; 99283; J1885